=== PATIENT | female | born 1970 | race African-American/Black ===

== ENCOUNTER → 2020-07-05 15:57 | Outpatient (CLI) | payer OTHER, SELFPAY ==
--- NOTE | ~2020-07-05 | MM_ITS ---
EXAMINATION: MM screening [facility]on BI w daria HISTORY: Screening mammogram TECHNIQUE: Craniocaudal and mediolateral oblique 3-D tomosynthesis images were obtained and synthetic 2-D images were generated. CAD analysis was submitted and interpreted. COMPARISON: 04/20/2019, 02/25/2018 bilateral digital screening mammogram examinations BREAST PARENCHYMAL COMPOSITION: There are scattered areas of fibroglandular density. FINDINGS: Stable mild fibroglandular asymmetry. There are bilateral benign-appearing intramammary lym ph nodes again noted. There is no evidence of suspicious mass, calcification, or architectural distor tion to suggest malignancy in either breast. There has been no suspicious interval change. IMPRESSION: 1. No mammographic evidence of malignancy. 2. Recommend routine screening mammography in one year. BI-RADS Category 2: Benign finding(s). Reviewed, dictated and finalized at location A.
== END ==
PROVIDERS: PCP Family Medicine; Visit Provider Obstetrics & Gynecology
DX: Z12.31 Encounter for screening mammogram for malignant neoplasm of breast (principal)
CPT/HCPCS: 77063; 77067

== ENCOUNTER → 2021-07-12 14:40 | Outpatient (CLI) | payer OTHER, SELFPAY ==
--- NOTE | ~2021-07-12 | MM_ITS ---
EXAMINATION: MM screening ivon BI w daria HISTORY: Screening mammogram TECHNIQUE: Craniocaudal and mediolateral oblique 3-D tomosynthesis images were obtained and synthetic 2-D images were generated. CAD analysis was submitted and interpreted. COMPARISON: No prior mammogram is available for comparison at this institution. BREAST PARENCHYMAL COMPOSITION: There are scattered areas of fibroglandular density. FINDINGS: There is no evidence of suspicious mass, calcification, or architectural distortion to sugg est malignancy in either breast. There has been no suspicious interval change. IMPRESSION: 1. No mammographic evidence of malignancy. 2. Recommend routine screening mammography in one year. BI-RADS Category 1: Negative Reviewed, dictated and finalized at location A.
== END ==
PROVIDERS: PCP Family Medicine; Visit Provider Obstetrics & Gynecology
DX: Z12.31 Encounter for screening mammogram for malignant neoplasm of breast (principal)
CPT/HCPCS: 77063; 77067

== ENCOUNTER 2022-01-09 17:43 | Emergency (ER) | payer OTHER, SELFPAY ==
[2022-01-09] VITALS (9 sets, daily range): BP systolic 113–151; BP diastolic 80–97; PULSE 71–101; RESP 12–18; TEMP 36.6; O2SAT 96–100
--- NOTE | ~2022-01-09 | CT_ITS ---
EXAMINATION: CT abdomen pelvis w con INDICATION: Left-sided abdominal pain TECHNIQUE: Computed tomographic images of the abdomen and pelvis were obtained after the administrati on of 100 cc of Omnipaque 350 intravenous contrast. The dose-length product (DLP) was 792.76 mGy-cm. Automated exposure control and iterative reconstruction technique were employed. COMPARISON: 03/22/2018 FINDINGS: The lung bases are clear. The heart size is normal. The liver, spleen, pancreas, gallbladde r, and adrenal glands are normal. The left kidney is unremarkable. There is a 5 mm cyst of the right kidney. No pathologically enlarged abdominal or pelvic lymph nodes are identified. There is no free i ntraperitoneal gas or evidence of bowel obstruction. There is circumferential wall thickening of the colon from the splenic flexure through the sigmoid colon. There is moderate spondylosis at L5-S1. IMPRESSION: 1. Mild colitis from the splenic flexure of the colon through the sigmoid colon. Reviewed, dictated and finalized at location F. IMPRESSION: 1. Mild colitis from the splenic flexure of the colon through the sigmoid colon .
[2022-01-09] MEDS: MORPHINE SULFATE (*CRX) 4 MG/ML INJ IV PUSH (20:30)
[2022-01-09] MEDS: SODIUM CHLORIDE 0.9% IV 1,000 ML 999 ML IV CONT (20:30)
[2022-01-09] MEDS: ONDANSETRON INJ 4 MG/2 ML VIAL IV PUSH (20:30)
[2022-01-09 20:34] LABS: Basophils Absolute Auto 0.1 K/mm3 (0.0-0.1); Basophils Percent Auto 0.5 % (0.2-1.2); Eosinophils Absolute Auto 0.2 K/mm3 (0-0.3); Eosinophils Percent Auto 1.3 % (0-4.4); Hematocrit 43.6 % (37.0-47.0); Hemoglobin 14.5 g/dL (12.0-15.0); Immature Granulocyte Absolute 0.06 K/mm3 (0.00-0.031); Immature Granulocyte Percent A 0.4 % (0-0.5); Lymphocytes Absolute Auto 3.17 K/mm3 (0.9-3.2); Lymphocytes Percent Auto 20.9 % (18.3-44.2); Mean Corpuscular HGB Conc 33.3 g/dl (32-36); Mean Corpuscular Hemoglobin 30.2 pg (26-34); Mean Corpuscular Volume 90.8 fl (80-100); Mean Platelet Volume 10.4 fl (7.4-10.4); Monocytes Absolute Auto 0.7 K/mm3 (0.1-0.6); Monocytes Percent Auto 4.5 % (2.6-8.5); Neutrophils Percent Auto 72.4 % (45.5-73.1); Platelet Count Result 308 k/mm3 (150-375); Red Cell Distribution Width 14.6 % (11.5-14.5); White Blood Count 15.2 K/mm3 (4.5-10.0)
[2022-01-09 20:53] LABS: Partial Thromboplastin Time 25.8 SECONDS (22.3-36.8)
[2022-01-09 20:55] LABS: Alanine Aminotransferase 18 U/L (4-35); Albumin Level 4.1 g/dL (3.5-5.1); Alkaline Phosphatase 95 U/L (38-126); Anion Gap 5 mmol/L (8-16); Aspartate Amino Transferase 30 U/L (14-36); Bilirubin,Total 0.5 mg/dL (0.2-1.3); Blood Urea Nitrogen 12 mg/dL (7-17); Calcium 8.8 mg/dL (8.4-10.2); Carbon Dioxide 29 mmol/L (22-30); Chloride 103 mmol/L (98-107); Estimated CRCL calculation 90 ml/min; Estimated Glomerular Filt Rate > 60; Glucose 83 mg/dL (65-110); Potassium 3.7 mmol/L (3.4-5.0); Sodium 137 mmol/L (137-145)
--- NOTE | 2022-01-09 21:15 | PC.NURSE ---
pt. to CT
--- NOTE | 2022-01-09 21:47 | ED.GIBLEED ---
HPI - GI Bleed General Chief complaint: GI Bleed Stated complaint: rectal bleeding Time Seen by Provider: 01/09/22 20:08 History of Present Illness HPI Narrative: Patient is a 51-year-old female who presents ER with diarrhea and rectal bleeding. Patient reports she has been having diarrhea since the early hours of the morning. It then became bloody later in the day. She has had bad stomach cramping. She has been having chills but no fevers. She initially thought symptoms were related to eating some white [place] hamburgers however patient reports that she had been with her boss last few days and her boss and that individual's family had all had the stomach flu. Patient also has history of diverticulitis. She has some increased pain on left side. Related Data Home Medications Medication Instructions Recorded Confirmed tkvtwkj-[id number]-M complex tablet tablet PO 06/29/21 12/07/21 cholecalciferol (vitamin D3) 125 125 mcg PO DAILY 06/29/21 12/07/21 mcg (5,000 unit) capsule multivitamin 1 tablet PO DAILY 06/29/21 12/07/21 Allergies Allergy/AdvReac Type Severity Reaction Status Date / Time metronidazole [From Flagyl] Allergy Mild Nausea Verified 12/07/21 14:12 Review of Systems Review of Systems: All systems reviewed & are unremarkable except as noted in HPI and below Constitutional: Constitutional: Reports chills, Reports fatigue and Denies fever(s) ENT: Denies nasal congestion and Denies sore throat Cardiovascular: Cardiovascular: Denies chest pain, Denies rapid heart rate and Denies radiating jaw, neck or arm pain Respiratory: Respiratory: Denies cough, Denies dyspnea and Denies wheezing Gastrointestinal: Gastrointestinal: Reports abdominal pain, Reports diarrhea, Denies nausea and Denies vomiting Genitourinary: Genitourinary: Denies nocturia and Denies dysuria [facility] Past Medical History Medical History (Updated 01/09/22 @ 22:03 by Rome Kilgore MD) Depression with anxiety Diverticulitis Surgical History Surgical History History of bilateral tubal ligation History of oophorectomy right? 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 Gender identity (if verbalized by the patient): Female Exam Narrative: GENERAL: Well-appearing, well-nourished, and in no acute distress. HEAD: Normocephalic, atraumatic. ENT: Mucous membranes moist. CHEST: Clear to auscultation. No respiratory distress. HEART: Regular rate and rhythm. Normal peripheral pulses. ABDOMEN: Soft, mild left upper quadrant tenderness without guarding, nondistended, normal active bowel sounds. EXTREMITIES: Normal range of motion. No edema. SKIN: Warm, dry, no rash. NEURO: Alert and oriented x3. PSYCH: Normal mood and affect. Course Course Emergency Course: Patient took a photo of her stool that showed stool mixed with bright red blood. It was sitting on top of toilet paper and did not fill the toilet. No overt hemorrhage. Discharged on Cipro. First dose here. Vital Signs Vital signs: Vital Signs Temperature 97.8 F 01/09/22 18:22 Pulse Rate 101 H 01/09/22 18:22 Respiratory Rate 18 01/09/22 18:22 Blood Pressure 113/97 H 01/09/22 18:22 Pulse Oximetry 99 01/09/22 18:22 Temperature 97.8 F 01/09/22 18:22 Pulse Rate 77 01/09/22 21:00 Respiratory Rate 14 01/09/22 20:16 Blood Pressure 151/90 H 0
[2022-01-09] MEDS: CIPROFLOXACIN 500 MG TAB PO (22:21)
[2022-01-09] MEDS: PROMETHAZINE HCL 25 MG/ML AMPUL 12.5 MG IV PUSH (22:22)
== END 2022-01-09 22:30 | disposition home or self-care (01) ==
PROVIDERS: Emergency Provider Emergency Medicine; PCP Family Medicine
DX: K52.9 Noninfective gastroenteritis and colitis, unspecified (principal)
CPT/HCPCS: 36415; 74177; 80053; 85025; 85610; 85730; 86850; 86900; 86901; 96361; 96374; 96375; 99284; A9270; J2270; J2405; J2550; J7030; Q9967

== ENCOUNTER 2022-07-11 11:35 | Emergency (ER) | payer OTHER, SELFPAY ==
[2022-07-11] VITALS (9 sets, daily range): BP systolic 103–137; BP diastolic 68–93; PULSE 74–98; RESP 11–18; TEMP 36.4; O2SAT 98–100
--- NOTE | ~2022-07-11 | CT_ITS ---
EXAMINATION: CT abdomen pelvis w con DATE: 07/11/2022 16:57 INDICATION: Lower abdominal pain. History of diverticulitis. TECHNIQUE: Computed tomography (CT) of the abdomen and pelvis was performed with 100 CC Omnipaque 350 intravenous contrast. Automated exposure control and iterative reconstruction technique were employe d. Exam dose: 975.07 mGy-cm total exam DLP. COMPARISON: 01/09/2022 CT abdomen pelvis FINDINGS: The lung bases are clear. Normal heart size. No pericardial or pleural effusion. The liver, gallbladder, bile ducts, spleen, pancreas, pancreatic duct and adrenal glands appear wilver l. 8 mm right renal cyst. 3 mm probable left renal lower pole cyst. No renal space-occupying mass lesion is noted otherwise. No urinary tract calculus or hydroureteronephrosis. Normal caliber of the abdominal aorta. No intraperitoneal or retroperitoneal or pelvic mass lesion or adenopathy or ascites. The uterus, adnexa and urinary bladder are unremarkable. There is thickening of the wall of the mid sigmoid colon with pericolic fat stranding in this area, m ost consistent with diverticulitis. Numerous diverticula are noted throughout left and right colon. No evidence of diverticulitis. No bow el obstruction or intraperitoneal free air is detected. There are small fat-containing umbilical hernia. Moderately severe degenerative disc disease and minimal retrolisthesis at L5-S1. Prominent degenerati ve spurring of the lower thoracic spine. No suspicious osteolytic or osteoblastic lesions. IMPRESSION: Acute diverticulitis of mid sigmoid colon Extensive diverticulosis of left and right colon Reviewed, dictated and finalized at Location A. Reviewed, dictated and finalized at location A.
[2022-07-11 12:04] LABS: Basophils Absolute Auto 0.1 K/mm3 (0.0-0.1); Basophils Percent Auto 0.7 % (0.2-1.2); Eosinophils Absolute Auto 0.2 K/mm3 (0-0.3); Eosinophils Percent Auto 1.4 % (0-4.4); Hematocrit 39.8 % (37.0-47.0); Hemoglobin 13.5 g/dL (12.0-15.0); Immature Granulocyte Absolute 0.04 K/mm3 (0.00-0.031); Immature Granulocyte Percent A 0.3 % (0-0.5); Lymphocytes Absolute Auto 2.96 K/mm3 (0.9-3.2); Lymphocytes Percent Auto 21.5 % (18.3-44.2); Mean Corpuscular HGB Conc 33.9 g/dl (32-36); Mean Corpuscular Hemoglobin 29.9 pg (26-34); Mean Corpuscular Volume 88.1 fl (80-100); Mean Platelet Volume 10.2 fl (7.4-10.4); Monocytes Absolute Auto 0.8 K/mm3 (0.1-0.6); Monocytes Percent Auto 5.6 % (2.6-8.5); Neutrophils Absolute Auto 9.7 K/mm3 (1.3-6.7); Neutrophils Percent Auto 70.5 % (45.5-73.1); Platelet Count Result 313 k/mm3 (150-375); Red Blood Count 4.52 M/mm3 (4.2-5.4); Red Cell Distribution Width 14.5 % (11.5-14.5); White Blood Count 13.8 K/mm3 (4.5-10.0)
[2022-07-11 12:14] LABS: Alanine Aminotransferase 17 U/L (6-35); Albumin Level 4.4 g/dL (3.5-5.1); Alkaline Phosphatase 95 U/L (38-126); Anion Gap 13 mmol/L (8-16); Aspartate Amino Transferase 21 U/L (14-36); Bilirubin,Total 0.4 mg/dL (0.2-1.3); Blood Urea Nitrogen 10 mg/dL (7-17); Calcium 8.8 mg/dL (8.4-10.2); Carbon Dioxide 24 mmol/L (22-30); Chloride 103 mmol/L (98-107); Estimated CRCL calculation 78 ml/min; Estimated Glomerular Filt Rate > 60; Glucose 111 mg/dL (65-110); Lipase 41 U/L (23-300); Potassium 3.8 mmol/L (3.4-5.0); Sodium 140 mmol/L (137-145)
[2022-07-11 12:21] LABS: Add Urine Microscopic? YES; Appearance Urine Cloudy (Clear); Bacteria Urine Trace /hpf; Bilirubin Urine Negative (Negative); Blood Urine 2+ (Negative); Color Urine Yellow (Yellow); Glucose Urine UA Negative (Negative); Ketones Urine Trace mg/dL (Negative); Leukocyte Esterase Ur Negative LEU/UL (Negative); Mucus Urine Rare /lpf; Nitrate Urine Negative (Negative); Protein Urine Negative (Negative); Specific Grav Ur 1.025 (1.001-1.035); Squamous Epithelial Cell Urine Many /hpf (Few); Urobilinogen Urine Negative mg/dL (<2.0); WBC Urine 0-3 /hpf
--- NOTE | 2022-07-11 16:37 | ED.ABDPAIN ---
HPI - Abdominal Pain General Chief Complaint: Abdominal Pain Stated Complaint: abd pain Time Seen by Provider: 07/11/22 16:37 Source: patient Mode of arrival: ambulatory Limitations: no limitations History of Present Illness HPI narrative: 52 years old -L[place] female presents with lower abdominal pain radiating to lower back pain bilaterally with chills and nausea. She denies any vomiting, diarrhea, constipation, rectal bleeding. History of diverticulitis and pancreatitis. Symptoms get worse with movement, get better sitting still. Patient does smoke and drink and uses marijuana Related Data Home Medications Medication Instructions Recorded Confirmed multivitamin 1 tablet PO DAILY 06/29/21 07/02/22 Allergies Allergy/AdvReac Type Severity Reaction Status Date / Time metronidazole [From Flagyl] Allergy Mild Nausea Verified 07/02/22 09:15 Review of Systems Review of Systems: All systems reviewed & are unremarkable except as noted in HPI and below PMFSH Past Medical History Medical History Depression with anxiety Diverticulitis Surgical History Surgical History History of bilateral tubal ligation History of oophorectomy right? 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 Gender identity (if verbalized by the patient): Female Exam Narrative: General appearance: Well-developed, well-nourished Skin: Normal color Head: Normocephalic, nontraumatic Eyes: Clear conjunctiva ENT: Oropharynx normal, ears normal, nose normal Neck: Supple, nontender Chest and respiratory: Airway patent, no respiratory distress, no accessory muscle use Heart: Regular rate/rhythm Abdomen: Soft, mild diffuse tenderness, no guarding or rebound no organomegaly, quiet bowel sounds Vascular: Normal peripheral pulses, normal capillary refill. Musculoskeletal: Normal range of motion, nontender back Neurologic: Alert and oriented ?3, DISPENSING AUDIOLOGIST is normal as tested, no gross motor deficit Course Course Emergency Course: Work-up today showed that the patient have acute diverticulitis. Denies any vomiting. Able to keep fluids and medicine down. Patient requested Zofran because she gets nauseated after Flagyl. Patient agreed with the discharge, and does not like to be hospitalized. Vital Signs Vital signs: Vital Signs Temperature 36.4 C L 07/11/22 11:53 Pulse Rate 98 07/11/22 11:53 Respiratory Rate 17 07/11/22 11:53 Blood Pressure 135/87 07/11/22 11:53 Pulse Oximetry 100 07/11/22 11:53 Oxygen Delivery Room Air 07/11/22 11:53 Temperature 36.4 C L 07/11/22 11:53 Pulse Rate 89 07/11/22 16:36 Respiratory Rate 11 L 07/11/22 16:36 Blood Pressure 103/68 07/11/22 16:36 Pulse Oximetry 100 07/11/22 16:36 Oxygen Delivery Room Air 07/11/22 11:53 MDM - Abdominal Pain Lab Data Result diagrams: 07/11/22 11:58 07/11/22 11:58 Labs: Lab Results 07/11/22 07/11/22 07/11/22 Range/Units
--- NOTE | 2022-07-11 16:45 | PC.NURSE ---
Pt to CT.
[2022-07-11] MEDS: ONDANSETRON INJ 4 MG/2 ML VIAL IV PUSH (17:00)
[2022-07-11] MEDS: MORPHINE SULFATE (*CRX) 4 MG/ML INJ IV PUSH (17:00)
[2022-07-11] MEDS: SODIUM CHLORIDE 0.9% IV 1,000 ML 999 ML IV CONT (17:00)
[2022-07-11] MEDS: AMOXICILLIN/CLAVULANATE K 875-125 MG TAB 1 TABLET PO (18:11)
== END 2022-07-11 18:24 | disposition home or self-care (01) ==
PROVIDERS: Emergency Provider Emergency Medicine; PCP Family Medicine
DX: K57.32 Diverticulitis of large intestine without perforation or abscess without bleeding (principal); F17.210 Nicotine dependence, cigarettes, uncomplicated; K57.90 Diverticulosis of intestine, part unspecified, without perforation or abscess without bleeding
CPT/HCPCS: 36415; 74177; 80053; 81001; 83690; 85025; 96361; 96374; 96375; 99284; A9270; J2270; J2405; J7030; Q9967

== ENCOUNTER → 2022-07-16 11:47 | Outpatient (CLI) | payer OTHER, SELFPAY ==
--- NOTE | ~2022-07-16 | MM_ITS ---
EXAMINATION: MM screening [facility] BI w daria HISTORY: Screening TECHNIQUE: Craniocaudal and mediolateral oblique 3-D tomosynthesis images were obtained and synthetic 2-D images were generated. CAD analysis was submitted and interpreted. COMPARISON: Comparison to multiple prior studies sequentially, with oldest reviewed study dated 02/2017. BREAST PARENCHYMAL COMPOSITION: There are scattered areas of fibroglandular density. FINDINGS: There is no evidence of suspicious mass, calcification, or architectural distortion to sugg est malignancy in either breast. There has been no suspicious interval change. IMPRESSION: 1. No mammographic evidence of malignancy. 2. Recommend routine screening mammography in one year. BI-RADS Category 1: Negative Reviewed, dictated and finalized at location A.
== END ==
PROVIDERS: PCP Family Medicine; Visit Provider Obstetrics & Gynecology
DX: Z12.31 Encounter for screening mammogram for malignant neoplasm of breast (principal)
CPT/HCPCS: 77063; 77067

== ENCOUNTER 2022-11-12 15:44 | Inpatient (IN) | payer OTHER, SELFPAY ==
--- NOTE | ~2022-11-12 | CT_ITS ---
EXAMINATION: CT abdomen pelvis w con INDICATION: Generalized abdominal pain TECHNIQUE: Computed tomographic images of the abdomen and pelvis were obtained after the administrati on of 100 cc of Omnipaque 350 intravenous contrast. The dose-length product (DLP) was 1073.47 mGy-cm. Automated exposure control and iterative reconstruction technique were employed. COMPARISON: 11/12/2022 FINDINGS: There are small pleural effusions, right greater than left. There is mild atelectasis of th e visualized lung bases. The heart size is normal. The liver, spleen, pancreas, gallbladder, and adre nal glands are normal. There is a 9 mm cyst of the right kidney. The left kidney is unremarkable. No pathologically enlarged abdominal or pelvic lymph nodes are identified. Again seen is diverticulosis with wall thickening of the sigmoid colon. There is a perisigmoid abscess without significant change accounting for differences in technique. There is, however, interval increase in free intraperitoneal gas and abdominal ascites. A moderate volume of free intraperitoneal gas is now seen surrounding the liver and anteriorly in the upper abdomen. There is wall thickening of the terminal ileum adjacent t o the affected segment of sigmoid colon, likely reactive. IMPRESSION: 1. Sigmoid diverticulitis with perforation and stable perisigmoid abscess but interval increase in vo lume of free intraperitoneal gas, ascites, and inflammatory change of the mesentery of the sigmoid co natalie and terminal ileum. 2. Development of small pleural effusions, right greater than left. Reviewed, dictated and finalized at location F. E SEWER IMPRESSION: 1. Sigmoid diverticulitis with perforation and stable perisigmoid abscess but i nterval increase in volume of free intraperitoneal gas, ascites, and inflammato ry change of the mesentery of the sigmoid colon and terminal ileum. 2. Development of small pleural effusions, right greater than left.
--- NOTE | ~2022-11-12 | CT_ITS ---
EXAMINATION: CT guide absc cath placement DATE: 11/13/2022 14:16 INDICATION: Perisigmoid abscess. TECHNIQUE: The procedure including the risks, benefits, and alternatives was discussed with the patie nt. Risks discussed included bleeding and infection. The patient understood the risks and benefits an d agreed to proceed. The skin overlying the buttocks was prepped and draped in usual sterile fashion. Anesthetic was administered with 1% lidocaine subcutaneously. Moderate sedation was achieved with 1 mg Versed IV and 50 mcg fentanyl IV. An 18 gauge trochar needle was inserted into the pelvic abscess with CT guidance. The needle was exchanged over a wire for 6 Cameroonian, 8 Cameroonian, and 9 Cameroonian dilators and then for an 8.5 Cameroonian pigtail catheter. The catheter was stitched to the skin, and a sterile dr essing was applied. The mA was adjusted according to patient size. Iterative reconstruction technique was employed. The dose-length product was 226.30 mGy-cm. There were no immediate complications. FINDINGS: CT images demonstrate the catheter within the pelvic abscess. 10 mL fluid was aspirated for testing. IMPRESSION: 1. Successful CT-guided transgluteal pelvic abscess drainage. 2. 10 mL james, turbid fluid was sent for aerobic and anaerobic cultures. Reviewed, dictated and finalized at location A. PRINT BLOCKER
--- NOTE | ~2022-11-12 | CT_ITS ---
EXAMINATION: CT abdomen pelvis w con DATE: 11/12/2022 20:58 INDICATION: Diffuse abdominal pain h/o diverticulitis TECHNIQUE: Computed tomography (CT) of the abdomen and pelvis was performed with 100 mL Omnipaque-350 intravenous contrast. Automated exposure control and iterative reconstruction technique were employe d. The dose-length product was 785.59 mGy-cm. COMPARISON: 07/11/2022. FINDINGS: Lower thorax: Left basilar scar/atelectasis Liver: Normal. Biliary/Gallbladder: Gallbladder is normal. No bile duct dilation. Pancreas: Mild atrophy. Spleen: Normal. Adrenals:No mass. Kidneys: Simple right upper pole cyst. No obstructing calculus. No hydronephrosis. No suspicious mass . GI tract: Mild distal esophageal and gastric wall edema as can be seen with esophagitis/gastritis. No small or large bowel dilation. Normal appendix. Segmental wall edema in the sigmoid colon with signi ficant surrounding inflammatory change and fluid. Tiny foci of gas within the adjacent mesenteric fat . Peripheral enhancement surrounding the fluid collection in the left/deep pelvis. Reactive wall selene a present in an adjacent loop of small bowel. Mesentery/Peritoneum: No ascites except as noted above, no mass. Retroperitoneum: No mass. Pelvis: Normal urinary bladder and uterus. Soft Tissues: Soft tissues and body wall unremarkable. Bones: No acute osseous finding. IMPRESSION: Complicated sigmoid diverticulitis, with evidence of microperforation and moderate volume, peripheral ly enhancing adjacent free fluid in the left/deep pelvis, suggesting early abscess formation. Reviewed, dictated and finalized at location K. ET INVESTIGATOR IMPRESSION: Complicated sigmoid diverticulitis, with evidence of microperforation and moder ate volume, peripherally enhancing adjacent free fluid in the left/deep pelvis, suggesting early abscess formation.
--- NOTE | ~2022-11-12 | XR_ITS ---
EXAMINATION: XR chest 1V portable INDICATION: Chest pain TECHNIQUE: Portable AP chest at 1623 hours COMPARISON: 07/29/2016 FINDINGS: The lung volumes are low. The lungs are free of acute opacities. No pleural effusion or pne umothorax. The cardiomediastinal silhouette is normal. IMPRESSION: 1. No acute cardiopulmonary abnormality. Reviewed, dictated and finalized at location F. ASSEMBLY PINNER
[2022-11-12 16:32] VITALS: BP 123/76; PULSE 103; RESP 20; TEMP 37.8; O2SAT 99
[2022-11-12 17:18] LABS: Basophils Absolute Auto 0.1 K/mm3 (0.0-0.1); Basophils Percent Auto 0.4 % (0.2-1.2); Eosinophils Absolute Auto 0.1 K/mm3 (0-0.3); Eosinophils Percent Auto 0.5 % (0-4.4); Hematocrit 41.6 % (37.0-47.0); Hemoglobin 13.5 g/dL (12.0-15.0); Immature Granulocyte Absolute 0.03 K/mm3 (0.00-0.031); Immature Granulocyte Percent A 0.2 % (0-0.5); Lymphocytes Percent Auto 7.1 % (18.3-44.2); Mean Corpuscular HGB Conc 32.5 g/dl (32-36); Mean Corpuscular Hemoglobin 29.5 pg (26-34); Mean Platelet Volume 10.1 fl (7.4-10.4); Monocytes Absolute Auto 0.4 K/mm3 (0.1-0.6); Monocytes Percent Auto 2.6 % (2.6-8.5); Neutrophils Absolute Auto 12.5 K/mm3 (1.3-6.7); Neutrophils Percent Auto 89.2 % (45.5-73.1); Platelet Count Result 350 k/mm3 (150-375); Red Blood Count 4.57 M/mm3 (4.2-5.4); Red Cell Distribution Width 14.8 % (11.5-14.5)
[2022-11-12 17:24] LABS: Appearance Urine Clear (Clear); Bacteria Urine None Seen /hpf; Bilirubin Urine 1+ (Negative); Blood Urine 2+ (Negative); Color Urine Dark Yellow (Yellow); Glucose Urine UA Negative (Negative); Ketones Urine 2+ mg/dL (Negative); Leukocyte Esterase Ur Trace LEU/UL (Negative); Nitrate Urine Negative (Negative); Non Pathogenic Casts 0-2; Protein Urine 1+ mg/dL (Negative); RBC Urine 21-50 /hpf (0-2); Specific Grav Ur 1.034 (1.001-1.035); Squamous Epithelial Cell Urine Occasional /hpf (Few); WBC Urine 0-5 /hpf; pH Urine 5.5 (5.0-9.0)
[2022-11-12 17:28] LABS: Alanine Aminotransferase 22 U/L (6-35); Albumin Level 4.2 g/dL (3.5-5.1); Alkaline Phosphatase 114 U/L (38-126); Anion Gap 8 mmol/L (8-16); Aspartate Amino Transferase 25 U/L (14-36); Bilirubin,Total 0.8 mg/dL (0.2-1.3); Blood Urea Nitrogen 12 mg/dL (7-17); Carbon Dioxide 28 mmol/L (22-30); Chloride 106 mmol/L (98-107); Estimated CRCL calculation 89 ml/min; Estimated Glomerular Filt Rate > 60; Glucose 109 mg/dL (65-110); Lipase 22 U/L (23-300); Potassium 3.7 mmol/L (3.4-5.0); Sodium 142 mmol/L (137-145)
[2022-11-12 17:30] LABS: Add Urine Microscopic? YES
--- NOTE | 2022-11-12 20:32 | ED.ABDPAIN ---
HPI - Abdominal Pain General Chief Complaint: Abdominal Pain Stated Complaint: abd cramps Time Seen by Provider: 11/12/22 20:08 Source: patient, RN notes reviewed and old records reviewed Mode of arrival: ambulatory Limitations: no limitations History of Present Illness HPI narrative: This is a 52 year old female with history of pancreatitis and diverticulitis who presents for evaluation of abdominal cramping. She developed intermittent lower abdominal cramping on Friday. This cramping had been localized to left lower abdomen but today she has diffuse abdominal pain. She states pain is radiating to her back and down her legs. She states initially she was only have small bowel movements but for the past day she had been unable to have bowel movement. She also has low grade fever today and nausea. She noticed pressure when she went to urinate today. She has not taken any medication for her pain today. She was prescribed amoxicillin by her PCP today for possible diverticulitis. She reports pain is 06/24 Related Data Allergies Allergy/AdvReac Type Severity Reaction Status Date / Time metronidazole [From Flagyl] Allergy Mild Nausea Verified 11/12/22 16:37 Review of Systems Constitutional: Constitutional: Reports fatigue, Reports fever(s) and Denies weakness Cardiovascular: Cardiovascular: Denies syncope, Denies rapid heart rate, Denies irregular heart rhythm, Denies leg edema and Denies dyspnea Respiratory: Respiratory: Denies chest congestion, Denies hemoptysis, Denies excessive phlegm production and Denies dyspnea Gastrointestinal: Gastrointestinal: Reports abdominal pain, Denies hematochezia, Reports constipation, Denies diarrhea, Reports nausea and Denies vomiting Genitourinary: Genitourinary: Denies hematuria and Denies dysuria Musculoskeletal: Musculoskeletal: Reports back pain, Denies joint swelling, Denies loss of height and Denies muscle weakness Neurologic: Denies syncope, Denies focal weakness and Denies weakness PMFSH Past Medical History Medical History Depression with anxiety Diverticulitis Surgical History Surgical History History of bilateral tubal ligation History of oophorectomy right? Family History Family History Grandparent Diabetes mellitus, Onset Age: 60 Cerebrovascular accident Father Mother Dementia Social History Social History Smoking status: Current every day smoker Tobacco type: cigarettes Second hand tobacco smoke exposure: No Alcohol intake: current Drinks per week: 3 Substance use: current Substance use type: marijuana Lack of Transportation: No Lack of Food: Never True Current Housing: I Have Housing Concerned About Future Housing: No Difficulty Paying Gas/Electric Bills: No Difficulty Paying for Meds: No Currently Unemployed: No Education: Associate Degree Difficulty w/ Childcare or Family Care: No Living arrangements: alone Occupation/Education: occupation 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 Gender identity (if verbalized by the patient): Female Spiritual care concerns: No Exam Const: General: alert Nutritional Appearance: well nourished Orientation/consciousness: patient oriented x3 Other: appears to be in pain HENMT: Head: normal to inspection Mouth: Yes Normal oral and palatal mucosa present Eyes: EOM: EOMs intact bilaterally Chest: Chest palpation & inspection: normal inspection of the chest Resp: Effort & Inspection: normal respiratory effort Auscultation: clear to auscultation bilaterally Cardio: Rate: tachycardic Rhythm: regular rhythm Heart sounds: no murmurs GI: GI
[2022-11-12] MEDS: ONDANSETRON INJ 4 MG/2 ML VIAL IV PUSH (20:40)
[2022-11-12] MEDS: HYDROmorphone HCL INJ (*CRX) 1 MG/ML SYR IV PUSH (20:41)
[2022-11-12] MEDS: SODIUM CHLORIDE 0.9% IV 1,000 ML 999 ML IV CONT ×2 (20:42→22:54)
[2022-11-12 21:23] LABS: Influenza A QL RT-PCR Negative (Negative); Influenza B QL RT-PCR Negative (Negative); SARS-CoV-2 RNA PCR Negative
[2022-11-12 23:20] VITALS: BP 115/71; PULSE 97; RESP 18; TEMP 36.5; O2SAT 98
--- NOTE | 2022-11-12 23:33 | ADMGEN ---
This patient, Billie Riddle, was admitted to [facility] Surg Room 300-01. Patient/family oriented to hospital policies and general routines including ID bracelet, bed and alarms, visiting hours, pain management, procedures, bathroom and other care routines, personal items, smoking policy, room service/diet, and visiting hours. Information on how to activate the Rapid Response Team has been discussed. Patient/Family are encouraged to report perceived risks to care and to ask questions if they do not understand what they are told or what they should do.
[2022-11-13] VITALS (12 sets, daily range): BP systolic 102–140; BP diastolic 61–92; PULSE 69–98; RESP 12–18; TEMP 36.4–36.6; O2SAT 93–100
[2022-11-13] MEDS: ONDANSETRON INJ 4 MG/2 ML VIAL IV PUSH ×4 (00:05→16:39)
[2022-11-13] MEDS: HYDROmorphone HCL INJ (*CRX) 1 MG/ML SYR IV PUSH ×7 (00:05→23:39)
[2022-11-13] MEDS: SODIUM CHLORIDE 0.9% IV 1,000 ML 125 ML IV CONT ×3 (00:06→20:14)
--- NOTE | 2022-11-13 00:30 | PM.IMHP ---
H&P: HPI History of Present Illness Date/Time: 11/13/22 00:30 Chief Complaint: Left lower quadrant pain Narrative: This is a 52-year-old female with past medical history significant for diverticulosis, diverticulitis, smokes 1 pack of cigarettes daily. Patient presents to the emergency room due to 3 days or so of left lower quadrant pain with tenesmus, poor appetite, nausea, denies fevers, rigors or chills vomiting patient had been prescribed amoxicillin but patient got gradually worse and presented to the emergency room. Preliminary workup was significant for CT of abdomen and pelvis has been reported as: FINDINGS: Lower thorax: Left basilar scar/atelectasis Liver: Normal.? Biliary/Gallbladder: Gallbladder is normal. No bile duct dilation. Pancreas: Mild atrophy. Spleen: Normal. Adrenals:No mass. Kidneys: Simple right upper pole cyst. No obstructing calculus. No hydronephrosis. No suspicious mass. GI tract: Mild distal esophageal and gastric wall edema as can be seen with esophagitis/gastritis. No small or large bowel dilation. Normal appendix. Segmental wall edema in the sigmoid colon with significant surrounding inflammatory change and fluid. Tiny foci of gas within the adjacent mesenteric fat. Peripheral enhancement surrounding the fluid collection in the left/deep pelvis. Reactive wall edema present in an adjacent loop of small bowel. Mesentery/Peritoneum: No ascites except as noted above, no mass. Retroperitoneum: No mass. Pelvis: Normal urinary bladder and uterus. Soft Tissues: Soft tissues and body wall unremarkable. Bones:? No acute osseous finding. IMPRESSION: Complicated sigmoid diverticulitis, with evidence of microperforation and moderate volume, peripherally enhancing adjacent free fluid in the left/deep pelvis, suggesting early abscess formation. Review of Systems Review of Systems: Left lower quadrant pain, tenesmus, constipation, nausea, vomiting, poor appetite Constitutional: Constitutional: Denies chills, Denies fever(s), Denies malaise, Denies night sweats, Reports poor appetite and Denies weakness Eyes: Eyes: Denies change in vision ENT: Denies dysphagia, Denies vertigo, Denies dizziness and Denies odynophagia Cardiovascular: Cardiovascular: Denies chest pain, Denies leg edema and Denies palpitations Respiratory: Respiratory: Denies chest congestion, Denies cough and Denies pain on inspiration Gastrointestinal: Gastrointestinal: Reports abdominal pain (Left lower quadrant), Reports constipation, Reports GI cramping, Denies dyspepsia, Denies heartburn, Reports diarrhea, Reports loose stools, Reports nausea and Reports vomiting Genitourinary: Genitourinary: Denies dysuria Musculoskeletal: Musculoskeletal: Denies myalgias Integumentary/Breasts: Skin/Breast: Denies rash Neurologic: Denies focal weakness and Denies Sensory deficit (Neuro) Psychiatric: Psychiatric: Reports no additional psychiatric complaints and Reports as per HPI Endocrine: Endocrine: Denies cold intolerance, Denies flushing, Denies heat intolerance, Denies polyphagia, Denies polydipsia and Denies palpitations Hematologic/Lymphatic: Hematologic/Lymphatic: Reports no additional hematologic/lymphatic complaints and Reports as per HPI Allergic/Immunologic: Allergic/Immunologic: Reports no additional allergic/immunologic complaints and Reports as per HPI PMFSH Past Medical History Medical History Depression with anxiety Diverticulitis Surgical History Surgical History History of bilateral tubal ligation History of oophorectomy right? Family History Family History Grandparent Diabetes mellitus, Onset Age: 60 Cerebrovascular accident Father Mother Dementia Social History Social History (Reviewed
[2022-11-13 06:15] LABS: Alanine Aminotransferase 18 U/L (6-35); Albumin Level 3.3 g/dL (3.5-5.1); Alkaline Phosphatase 87 U/L (38-126); Anion Gap 5 mmol/L (8-16); Aspartate Amino Transferase 20 U/L (14-36); Bilirubin,Total 1.4 mg/dL (0.2-1.3); Blood Urea Nitrogen 8 mg/dL (7-17); Calcium 7.7 mg/dL (8.4-10.2); Carbon Dioxide 26 mmol/L (22-30); Chloride 110 mmol/L (98-107); Estimated CRCL calculation 102 ml/min; Estimated Glomerular Filt Rate > 60; Glucose 97 mg/dL (65-110); Potassium 3.2 mmol/L (3.4-5.0); Sodium 141 mmol/L (137-145)
[2022-11-13 06:32] LABS: Basophils Percent Auto 0.3 % (0.2-1.2); Eosinophils Absolute Auto 0.1 K/mm3 (0-0.3); Eosinophils Percent Auto 0.8 % (0-4.4); Hemoglobin 11.3 g/dL (12.0-15.0); Immature Granulocyte Absolute 0.06 K/mm3 (0.00-0.031); Immature Granulocyte Percent A 0.4 % (0-0.5); Lymphocytes Absolute Auto 1.79 K/mm3 (0.9-3.2); Lymphocytes Percent Auto 11.7 % (18.3-44.2); Mean Corpuscular HGB Conc 32.3 g/dl (32-36); Mean Corpuscular Hemoglobin 28.9 pg (26-34); Mean Corpuscular Volume 89.5 fl (80-100); Mean Platelet Volume 10.8 fl (7.4-10.4); Monocytes Absolute Auto 0.6 K/mm3 (0.1-0.6); Monocytes Percent Auto 3.7 % (2.6-8.5); Neutrophils Absolute Auto 12.7 K/mm3 (1.3-6.7); Neutrophils Percent Auto 83.1 % (45.5-73.1); Platelet Count Result 304 k/mm3 (150-375); Red Blood Count 3.91 M/mm3 (4.2-5.4); Red Cell Distribution Width 14.8 % (11.5-14.5); White Blood Count 15.3 K/mm3 (4.5-10.0)
[2022-11-13] MEDS: KCL 20 MEQ/SW 100 ML 100 ML 50 MEQ IVPB (09:42)
[2022-11-13 10:21] LABS: INR 1.4; Prothrombin Time 16.5 Seconds (11.1-14.7)
[2022-11-13 10:22] LABS: Partial Thromboplastin Time 31.4 SECONDS (22.3-36.8)
--- NOTE | 2022-11-13 11:46 | PM.CNGS ---
Assessment and Plan Assessment and plan (1) Diverticulitis of large intestine with perforation and abscess: Qualifiers: Diverticulitis bleeding: without bleeding Qualified Code(s): K57.20 - Diverticulitis of large intestine with perforation and abscess without bleeding Code(s): K57.20 - Diverticulitis of large intestine with perforation and abscess without bleeding Status: Acute Assessment and Plan: CT scan reviewed with the Radiologist and discussed with the patient in detail. She has evidence of complicated sigmoid diverticulitis with microperforation and an adjacent abscess measuring about 8 x 3 cm. This appears amenable to percutaneous drainage. We would recommend CT-guided percutaneous drainage of the abscess in Radiology, which I have ordered to hopefully be done today. Also continue broad-spectrum IV antibiotics, bowel rest, analgesics as needed. She has been started on IV Zosyn, which is appropriate. I discussed with the patient that if she does not improve with antibiotics and drainage or if she shows worsening signs of infection, then she could require surgery in the acute phase, but we try to avoid this as it comes with a higher risk of a colostomy. Will continue to follow along with serial abdominal exams and labs. (2) BMI 35.0-35.9,adult: Code(s): Z68.35 - Body mass index [BMI] 35.0-35.9, adult Status: Acute (3) Tobacco abuse: Code(s): Z72.0 - Tobacco use Status: Acute (4) Depression with anxiety: Code(s): F41.8 - Other specified anxiety disorders Status: Acute Plan I have discussed the patient's case and plan of care with Dr. Gamez. Thank you for allowing us to see the patient in consultation and we will continue to follow along with you. History of Present Illness Consult details Consult date: 11/13/22 Reason for consult: other (Sigmoid diverticulitis with perforation and abscess) Requesting physician: Velia Garcia MD Narrative: This is a 52-year-old woman who presented to the emergency department with complaints of a 12-day history of abdominal pain. She was recently on vacation in [place] from October 25-. She had been drinking more alcohol than normal and eating poorly. She developed left lower quadrant abdominal pain and diarrhea on November 01 while in [place]. She attributed this to her eating and drinking while on vacation. This was initially a mild cramping abdominal pain. The pain and diarrhea seemed to get better over the next few days and then worsened again last weekend. She had one day of loose stools, then started to feel constipated over the next few days. She had associated nausea and chills, but no vomiting. Her abdominal pain would be relieved after passing flatus, but was only having a few small BMs. She eventually called her PCP yesterday due to the persistent pain. They started her on Augmentin. She took 1 dose at lunch, and then her abdominal pain became more severe in the afternoon, therefore she came into the ER for further evaluation. CT scan of the abdomen and pelvis showed sigmoid diverticulitis with microperforation and a peripherally enhancing adjacent area of free fluid in the left deep pelvis suggesting early abscess formation. Labs [place] [id number]. She was admitted to the hospitalist service. Our service has been consulted for evaluation of perforated diverticulitis with abscess. She is seen on the medical floor. She reports over the last few days, her abdominal pain has become more generalized and more intense. She is passing flatus today, but her last bowel movement was yesterday. She reports having a history of diverticulitis about 3-4 times in the past 15 years. It has been multiple years since her last episode. All previous episodes have been treated with outpatient oral antibiotics. She reports having a colonoscopy many years ago with reportedly no significant findings
--- NOTE | 2022-11-13 13:29 | WPDMODSED ---
Moderate Sedation Note-Pt Data Patient Data Diagnosis: Pelvic abscess. Present Complaint: Pelvis abscess. Procedure to be performed/Plan: CT-guided pelvic abscess drainage. Allergies Allergy/AdvReac Type Severity Reaction Status Date / Time metronidazole [From Flagyl] AdvReac Mild Nausea Verified 11/13/22 09:50 Home Medications Medication Instructions Recorded Confirmed Type hydrocodone 7.5 mg-acetaminophen 1 tablet PO Q6H PRN pain #60 tabs 09/20/22 11/13/22 Rx 325 mg tablet amoxicillin 875 mg-potassium 1 tablet PO BID #14 tabs 11/12/22 11/13/22 Rx clavulanate 125 mg tablet Current Medications: Active Medications Hydromorphone HCl (Hydromorphone Hcl Inj (*Crx) 1 Mg/Ml Syr) 1 mg IV PUSH Q2H PRN PRN Reason: Pain Rated 7-10 Last Admin: 11/13/22 11:52 Dose: 1 mg Hydromorphone HCl (Hydromorphone Hcl Inj (*Crx) 2 Mg/Ml Vial) 0.5 mg IV PUSH Q2H PRN PRN Reason: Pain Rated 4-6 Piperacillin/Tazobactam/Dextrose (Zosyn 3.375 Gm/D5w 50ml Pm) 3.375 gm in 50 mls @ 100 mls/hr IVPB Q6H OLIVIA Last Admin: 11/13/22 11:51 Dose: 100 mls/hr Acetaminophen (Ofirmev 1,000 Mg Ivpb) 1,000 mg in 100 mls @ 400 mls/hr IVPB Q6H PRN PRN Reason: Mild Pain (1-3) or Fever Stop: 11/13/22 21:55 Last Admin: 11/13/22 06:47 Dose: 400 mls/hr Sodium Chloride (Normal Saline Iv) 1,000 mls @ 125 mls/hr IV CONT .Q8H OLIVIA Last Admin: 11/13/22 08:16 Dose: 125 mls/hr Lorazepam (Lorazepam Inj (*Crx) 2 Mg/Ml Vial) 0.5 mg IV PUSH Q6H PRN PRN Reason: Anxiety Ondansetron HCl (Ondansetron Inj 4 Mg/2 Ml Vial) 4 mg IV PUSH Q4H PRN PRN Reason: Nausea Last Admin: 11/13/22 11:51 Dose: 4 mg Promethazine HCl (Promethazine Hcl 25 Mg/Ml Ampul) 12.5 mg IV PUSH Q4H PRN PRN Reason: Nausea And Vomiting Sedation/Anesthesia: No previous sedation/anesthesia problems (including family history). [facility] Past Medical History Medical History Depression with anxiety Diverticulitis History of colitis 2018 Surgical History Surgical History History of bilateral tubal ligation History of colonoscopy Reportedly has had a colonoscopy in the past many years ago and is due, but cannot recall what year and denies any significant findings History of laparoscopy 2014 - Diagnostic laparoscopy, diagnostic hysteroscopy for dysfunctional uterine bleeding History of oophorectomy Family History Family History Grandparent Diabetes mellitus, Onset Age: 60 Cerebrovascular accident Father Mother Dementia Social History Social History Smoking status: Current every day smoker Tobacco type: cigarettes Second hand tobacco smoke exposure: No Alcohol intake: current Drinks per week: 3 Substance use: current Substance use type: marijuana Lack of Transportation: No Lack of Food: Never True Current Housing: I Have Housing Concerned About Future Housing: No Difficulty Paying Gas/Electric Bills: No Difficulty Paying for Meds: No Currently Unemployed: No Education: Associate Degree Difficulty w/ Childcare or Family Care: No Living arrangements: alone Occupation/Education: occupation 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 Gender identity (if verbalized by the patient): Female Spiritual care concerns: No Mod Sed Physical Exam Physical Exam Pre Procedural Exam: Normal: Throat, Lungs, Heart Rate and Heart Rhythm and Variation: Abdomen (Tenderness to deep palpation lower abdomen.) Hours since solid foods: 12 Hours since liquid intake: 12 Mallampati Classification: class II Internal Medicine - PN: Obj Da Vital Signs Vital Signs: Vital Signs - 24 hr 11/12/22 16:32 11/12/22 23:
--- NOTE | 2022-11-13 14:23 | SUR.PHASEII ---
Pt stable without complaint after procedure. Drain in place. IV rt forearm saline locked. Transfer to floor via stretcher by assistant professor of radiology. Report called to floor nurse by traffic technician.
--- NOTE | 2022-11-13 15:13 | PM.IMPN ---
Progress Note: A&P Assessment and Plan (1) Perforated diverticulum of intestine: Code(s): K57.80 - Diverticulitis of intestine, part unspecified, with perforation and abscess without bleeding Status: Acute Assessment and Plan: patient presented with abdominal pain. CT on admission showed complicated sigmoid diverticulitis with microperforation and early abscess formation underwent CT-guided transgluteal abscess drainage today abscess cultures are pending continue IV Zosyn appreciate general surgery recommendations currently NPO. Continue IV fluids while NPO and advance diet as tolerated per General surgery recommendations analgesics and antiemetics available as needed WBC elevated at 15.3. Continue to trend Monitor CRP (2) Hypokalemia: Code(s): E87.6 - Hypokalemia Status: Acute Assessment and Plan: Potassium is 3.2 today. Likely secondary to NPO diet supplement potassium and continue to monitor (3) Tobacco abuse: Code(s): Z72.0 - Tobacco use Status: Acute Assessment and Plan: Nicotine patch as needed during admission Subjective Date/time seen: 11/13/22 11:40 Interval history: date of service: 11/13/2022 Billie Riddle is a 52-year-old female with a history of depression, anxiety, colitis, diverticulitis who is seen in follow-up for diverticulitis with perforation and abscess. She is feeling poorly today. She endorses 10/10 lower abdominal pain. she complains of nausea but no episodes of emesis. Her mouth is dry since she has been NPO today. Reports having a bowel movement yesterday. She endorses chills and sweats but no fever. Denies urinary symptoms. She feels anxious about being hospitalized. Review of Systems Review of Systems: All systems reviewed & are unremarkable except as noted in HPI and below Exam Narrative: General: Well-nourished, well-appearing 52-year-old female, sitting up in bed, comfortable, NARD Neuro: awake, alert and oriented x4, speech clear, no focal neuro deficits noted HEENMT: normocephalic, atraumatic, EOMI, sclerae anicteric, moist oral mucosa Respiratory: clear to auscultation bilaterally, nonlabored breathing Cardio: regular rate, regular rhythm with S1-S2 Abdomen: nondistended, normoactive bowel sounds, soft, diffusely tender to palpation Extremities: no edema, erythema, or tenderness to palpation, DP pulses 2+ bilaterally Skin: no rashes or lesions, warm and dry Psych: appropriate mood and affect, tearful, judgment and insight intact Objective Data Vital Signs Vital Signs: Vital Signs - 24 hr 11/12/22 16:32 11/12/22 23:20 11/13/22 06:00 Temperature 100.1 F H 97.7 F 97.9 F Pulse Rate 103 H 97 94 Respiratory Rate 20 18 18 Blood Pressure 123/76 115/71 115/70 Pulse Oximetry 99 98 98 Oxygen Delivery Room Air 11/13/22 08:14 11/13/22 14:00 Temperature 97.5 F L Pulse Rate 69 80 Respiratory Rate 18 Blood Pressure 110/69 Pulse Oximetry 93 97 Oxygen Delivery Room Air Intake/Output Intake/Output: Intake & Output 11/10/22 11/11/22 11/12/22 11/13/22 23:59 23:59 23:59 23:59 Intake Total 1100 1100 Output Total 500 Balance 1100 600 Meds/Results Medications: Active Medications Generic Name Dose Route Start Last Admin Trade Name Freq PRN Reason Stop Dose Admin Hydromorphone HCl 1 mg 11/13/22 09:48 11/13/22 11:52 Hydromorphone Hcl Inj (*Crx) 1 Mg/Ml Syr IV PUSH 1 mg Q2H PRN Administration Pain Rated 7-10 Hydromorphone HCl 0.5 mg 11/13/22 09:47 Hydromorphone Hcl Inj (*Crx) 2 Mg/Ml Vial IV PUSH Q2H PRN Pain Rated 4-6 Piperacillin/Tazobactam/Dextrose 3.375 gm in 50 mls @ 100 mls/hr 11/13/22 06:00 11/13/22 14:57 Zosyn 3.375 Gm/D5w 50ml Pm IVPB Infused Q6H OLIVIA Infusion Acetaminophen 1,000 mg in 100 mls @ 400 mls/hr 11/12/22 21:56 11/13/22 06:47 Ofirmev 1,000 Mg Ivpb IVPB 11/13/22 21:55 400 mls/hr
[2022-11-14] MEDS: SODIUM CHLORIDE 0.9% IV 1,000 ML 125 ML IV CONT (05:21)
[2022-11-14 06:00] VITALS: BP 110/63; PULSE 96; RESP 17; TEMP 36.7; O2SAT 91
[2022-11-14] MEDS: HYDROmorphone HCL INJ (*CRX) 1 MG/ML SYR IV PUSH ×5 (06:05→19:03)
[2022-11-14] MEDS: ONDANSETRON INJ 4 MG/2 ML VIAL IV PUSH (06:05)
[2022-11-14 07:13] LABS: Hematocrit 35.1 % (37.0-47.0); Hemoglobin 11.2 g/dL (12.0-15.0); Mean Corpuscular HGB Conc 31.9 g/dl (32-36); Mean Corpuscular Hemoglobin 28.8 pg (26-34); Mean Corpuscular Volume 90.2 fl (80-100); Platelet Count Result 305 k/mm3 (150-375); Red Blood Count 3.89 M/mm3 (4.2-5.4); White Blood Count 15.5 K/mm3 (4.5-10.0)
[2022-11-14 07:22] LABS: Anion Gap 8 mmol/L (8-16); Blood Urea Nitrogen 6 mg/dL (7-17); Calcium 8.1 mg/dL (8.4-10.2); Carbon Dioxide 21 mmol/L (22-30); Chloride 108 mmol/L (98-107); Estimated CRCL calculation 89 ml/min; Estimated Glomerular Filt Rate > 60; Glucose 73 mg/dL (65-110); Potassium 3.2 mmol/L (3.4-5.0); Sodium 137 mmol/L (137-145)
[2022-11-14] MEDS: PROMETHAZINE HCL 25 MG/ML AMPUL 12.5 MG IV PUSH (09:16)
[2022-11-14] MEDS: ENOXAPARIN 40 MG/0.4 ML SYRINGE SUB-Q (09:25)
--- NOTE | 2022-11-14 10:35 | PM.PNGS ---
Progress Note: A&P Assessment and Plan (1) Diverticulitis of large intestine with perforation and abscess: Qualifiers: Diverticulitis bleeding: without bleeding Qualified Code(s): K57.20 - Diverticulitis of large intestine with perforation and abscess without bleeding Code(s): K57.20 - Diverticulitis of large intestine with perforation and abscess without bleeding Status: Acute Assessment and Plan: S/p perc drain in IR yesterday, cultures pending. WBC still 15k today, but abdominal pain and tenderness improved. Repeat labs tomorrow. Will try sips of clear liquids today. Continue IV Zosyn Encouraged to get up to chair and ambulate (2) BMI 35.0-35.9,adult: Code(s): Z68.35 - Body mass index [BMI] 35.0-35.9, adult Status: Acute (3) Tobacco abuse: Code(s): Z72.0 - Tobacco use Status: Acute Plan I have discussed the patient's case and plan of care with Dr. Gamez. Subjective Subjective Date/Time Seen: 11/14/22 10:35 Patient reports: pain is less, voiding w/o difficulty, flatus, no bowel movement and afebrile Interval history: Patient feeling well today. Her abdominal pain has improved and is now primarily only across her lower abdomen. She also has some L gluteal soreness at perc drain site, but not bad. She is still having some nausea but insists that it is due to not having anything to eat/drink. Nausea improved after having the Phenergan this morning. No other complaints at this time. Review of Systems Review of Systems: ROS unchanged Exam Const: General: comfortable and no acute distress Orientation/consciousness: patient oriented x3 GI: Inspection: other (mildly distended) GI Palp: Yes Soft to palpation, Yes Tenderness to palpation present (GI) (RLQ, LLQ, suprapubic), No Guarding due to palpation present (GI) and No Rebound tenderness present Auscultation: normal bowel sounds Other: L gluteal perc drain with cloudy yellow drainage Extrem: General: normal to inspection and no edema Psych: Insight: Good insight present (Psych) Objective Data Vital Signs Vital Signs: Vital Signs - 24 hr 11/13/22 14:00 11/13/22 13:42 11/13/22 13:53 Temperature 97.5 F L Pulse Rate 80 94 81 Respiratory Rate 18 14 16 Blood Pressure 110/69 131/92 H 140/77 Pulse Oximetry 97 97 100 Oxygen Delivery Room Air Nasal Cannula Oxygen Flow Rate 3 11/13/22 14:13 11/13/22 14:03 11/13/22 13:58 Temperature Pulse Rate 84 84 84 Respiratory Rate 14 12 16 Blood Pressure 109/66 102/72 109/71 Pulse Oximetry 97 100 100 Oxygen Delivery Room Air Nasal Cannula Nasal Cannula Oxygen Flow Rate 3 3 11/13/22 14:08 11/13/22 14:23 11/13/22 22:00 Temperature 97.6 F Pulse Rate 82 78 98 Respiratory Rate 15 16 17 Blood Pressure 110/78 103/75 106/61 Pulse Oximetry 100 95 93 Oxygen Delivery Nasal Cannula Room Air Oxygen Flow Rate 3 11/13/22 20:00 11/14/22 06:00 Temperature 98.1 F Pulse Rate 98 96 Respiratory Rate 17 17 Blood Pressure 110/63 Pulse Oximetry 93 91 Oxygen Delivery Room Air Oxygen Flow Rate Intake/Output Intake/Output: Intake & Output 11/11/22 11/12/22 11/13/22 11/14/22 23:59 23:59 23:59 23:59 Intake Total 1100 2250 1050 Output Total 1150 550 Balance 1100 1100 500 Meds/Results Medications: Active Medications Generic Name Dose Route Start Last Admin Trade Name Freq PRN Reason Stop Dose Admin Enoxaparin Sodium 40 mg 11/14/22 09:00 11/14/22 09:25 Enoxaparin 40 Mg/0.4 Ml Syringe SUB-Q 40 mg DAILY OLIVIA Administration Hydromorphone HCl 1 mg 11/13/22 09:48 11/14/22 09:16 Hydromorphone Hcl Inj (*Crx) 1 Mg/Ml Syr IV PUSH 1 mg Q2H PRN Administration Pain Rated 7-10 Hydromorphone HCl 0.5 mg 11/13/22 09:47 Hydromorphone Hcl Inj (*Crx) 2 Mg/Ml Vial IV PUSH Q2H PRN Pain Rated 4-6 Piperacillin/Tazobactam/Dextrose 3.375 gm in 50 mls @ 100 mls/hr 11/13/22 06:00 11/14/22 05:21 Zosvetlana
--- NOTE | 2022-11-14 11:00 | PM.IMPN ---
Progress Note: A&P Assessment and Plan (1) Perforated diverticulum of intestine: Code(s): K57.80 - Diverticulitis of intestine, part unspecified, with perforation and abscess without bleeding Status: Acute Assessment and Plan: Patient presented with abdominal pain. CT on admission showed complicated sigmoid diverticulitis with microperforation and early abscess formation underwent CT-guided transgluteal abscess drainage today drain present Trend output abscess cultures are pending continue IV Zosyn appreciate general surgery recommendations currently on clear liquids Continue IV fluids for right now analgesics and antiemetics available as needed WBC elevated at 15.5 and are trending up Trend labs (2) Hypokalemia: Code(s): E87.6 - Hypokalemia Status: Acute Assessment and Plan: Potassium is 3.2 again today Likely secondary to NPO diet Supplement potassium with 40mcg IV once Continue to trend labs Supplement as indicated (3) Tobacco abuse: Code(s): Z72.0 - Tobacco use Status: Acute Assessment and Plan: Nicotine patch as needed during admission Smoking cessation education given Time Spent With Patient Time: 52 minutes Time with patient: Greater than 35 minutes Subjective Date/time seen: 11/14/22 1100 Interval history: 11/14/22 1100 patient is lying in bed. Patient states that she is having pain however it is better controlled with the medication every 4 hours. She also stated that she is nauseous however she would like to try something to eat at least clear liquids As she stated that she is thirsty. She denies any chest pain, shortness a breath, vomiting. She does states she is extremely weak and nauseated all the time. She also stated that she had the sweats overnight. White count is still elevated at 15.5. 11/13/2022 1140 Billie Riddle is a 52-year-old female with a history of depression, anxiety, colitis, diverticulitis who is seen in follow-up for diverticulitis with perforation and abscess.? She is feeling poorly today.? She endorses 10/10 lower abdominal pain.? she complains of nausea but no episodes of emesis.? Her mouth is dry since she has been NPO today.? Reports having a bowel movement yesterday.? She endorses chills and sweats but no fever.? Denies urinary symptoms.? She feels anxious about being hospitalized 11/13/22? 00:30 This is a 52-year-old female with past medical history significant for diverticulosis, diverticulitis, smokes 1 pack of cigarettes daily.? Patient presents to the emergency room due to 3 days or so of left lower quadrant pain with tenesmus, poor appetite, nausea, denies fevers, rigors or chills vomiting patient had been prescribed amoxicillin but patient got gradually worse and presented to the emergency room. Review of Systems Review of Systems: All systems reviewed & are unremarkable except as noted in HPI and below Exam Narrative: General: well-nourished, well-appearing 52-year-old female, sitting up in bed, comfortable, NARD Neuro: awake, alert and oriented x4, speech clear, no focal neuro deficits noted HEENMT: normocephalic, atraumatic, EOMI, sclerae anicteric, moist oral mucosa Respiratory: Clear to auscultation bilaterally without crackles, rhonchi or wheezes, nonlabored breathing Cardio: regular rate, regular rhythm with S1-S2 Abdomen: nondistended, normoactive bowel sounds, soft, nontender to palpation Drain on the left abdomen draining a yellow clear fluid Extremities: no edema, erythema, or tenderness to palpation, DP pulses 2+ bilaterally Skin: no rashes or lesions, warm and dry Psych: appropriate mood and affect, judgment and insight intact Objective Data Vital Signs Vital Signs: Vital Signs - 24 hr 11/13/22 14:00 11/13/22 13:42 11/13/22 13:53 Temperature 97.5 F L Pulse Rate 80 94 81 Respiratory Rate 18 14 16 B
[2022-11-14] MEDS: POTASSIUM CHLORIDE INJ 40 MEQ in SODIUM CHLORIDE 0.9% IV 500 ML 130 MEQ IVPB (11:12)
[2022-11-14 13:44] VITALS: BP 112/64; PULSE 92; RESP 18; TEMP 36.6; O2SAT 97
[2022-11-14] MEDS: SODIUM CHLORIDE 0.9% IV 1,000 ML 100 ML IV CONT (14:20)
[2022-11-14 21:35] VITALS: BP 122/80; PULSE 98; RESP 14; TEMP 36.9; O2SAT 92
[2022-11-15] MEDS: SODIUM CHLORIDE 0.9% IV 1,000 ML 100 ML IV CONT (00:14)
[2022-11-15] MEDS: HYDROmorphone HCL INJ (*CRX) 1 MG/ML SYR IV PUSH (03:08)
[2022-11-15 06:00] VITALS: BP 113/66; PULSE 79; RESP 14; TEMP 37.3; O2SAT 94
[2022-11-15 06:17] VITALS: TEMP 37.3
[2022-11-15 06:18] LABS: Basophils Percent Auto 0.4 % (0.2-1.2); Eosinophils Absolute Auto 0.3 K/mm3 (0-0.3); Eosinophils Percent Auto 2.4 % (0-4.4); Hematocrit 32.5 % (37.0-47.0); Hemoglobin 10.5 g/dL (12.0-15.0); Immature Granulocyte Absolute 0.06 K/mm3 (0.00-0.031); Immature Granulocyte Percent A 0.6 % (0-0.5); Lymphocytes Absolute Auto 0.83 K/mm3 (0.9-3.2); Lymphocytes Percent Auto 7.8 % (18.3-44.2); Mean Corpuscular HGB Conc 32.3 g/dl (32-36); Mean Corpuscular Hemoglobin 28.9 pg (26-34); Mean Corpuscular Volume 89.5 fl (80-100); Mean Platelet Volume 10.5 fl (7.4-10.4); Monocytes Absolute Auto 0.9 K/mm3 (0.1-0.6); Neutrophils Absolute Auto 8.6 K/mm3 (1.3-6.7); Neutrophils Percent Auto 80.8 % (45.5-73.1); Platelet Count Result 278 k/mm3 (150-375); Red Blood Count 3.63 M/mm3 (4.2-5.4); White Blood Count 10.6 K/mm3 (4.5-10.0)
[2022-11-15 06:35] LABS: Alanine Aminotransferase 24 U/L (6-35); Alkaline Phosphatase 103 U/L (38-126); Anion Gap 3 mmol/L (8-16); Aspartate Amino Transferase 50 U/L (14-36); Bilirubin,Total 0.8 mg/dL (0.2-1.3); Blood Urea Nitrogen 4 mg/dL (7-17); Calcium 7.8 mg/dL (8.4-10.2); Carbon Dioxide 25 mmol/L (22-30); Chloride 108 mmol/L (98-107); Estimated CRCL calculation 102 ml/min; Estimated Glomerular Filt Rate > 60; Glucose 108 mg/dL (65-110); Potassium 3.2 mmol/L (3.4-5.0); Sodium 136 mmol/L (137-145)
[2022-11-15] MEDS: POTASSIUM CHLORIDE INJ 40 MEQ in SODIUM CHLORIDE 0.9% IV 500 ML 130 MEQ IVPB (09:04)
[2022-11-15] MEDS: ENOXAPARIN 40 MG/0.4 ML SYRINGE SUB-Q (09:05)
[2022-11-15] MEDS: HYDROmorphone HCL INJ (*CRX) 2 MG/ML VIAL 0.5 MG IV PUSH (10:52)
[2022-11-15] MEDS: ONDANSETRON INJ 4 MG/2 ML VIAL IV PUSH ×3 (10:55→20:25)
--- NOTE | 2022-11-15 11:45 | PM.IMPN ---
Progress Note: A&P Assessment and Plan (1) Perforated diverticulum of intestine: Code(s): K57.80 - Diverticulitis of intestine, part unspecified, with perforation and abscess without bleeding Status: Acute Assessment and Plan: Patient presented with abdominal pain. CT on admission showed complicated sigmoid diverticulitis with microperforation and early abscess formation underwent CT-guided transgluteal abscess drainage today drain present Trend output abscess cultures no growth to date continue IV Zosyn appreciate general surgery recommendations advanced to full liquids Stop IV fluids for now analgesics and antiemetics available as needed, oxycodone added for oral pain medication WBC elevated at 15.5 on 11/14/22, currently down to 10.6 Trend labs (2) Diverticulitis of large intestine with perforation and abscess: Qualifiers: Diverticulitis bleeding: without bleeding Qualified Code(s): K57.20 - Diverticulitis of large intestine with perforation and abscess without bleeding Code(s): K57.20 - Diverticulitis of large intestine with perforation and abscess without bleeding Status: Acute Assessment and Plan: See above (3) Hypokalemia: Code(s): E87.6 - Hypokalemia Status: Acute Assessment and Plan: Potassium is 3.2 Likely secondary to NPO diet Supplement potassium with 40mcg IV once repeated Continue to trend labs Supplement as indicated (4) Tobacco abuse: Code(s): Z72.0 - Tobacco use Status: Acute Assessment and Plan: Nicotine patch as needed during admission Smoking cessation education given Time Spent With Patient Time: 48 minutes Time with patient: Greater than 35 minutes Subjective Date/time seen: 11/15/22 1145 Interval history: 11/15/22 1145 Patient seems to be doing well today. She did state that she had to you to bowel movements however she is still little nauseous. She currently denies any chest pain, shortness a breath, weakness or fatigue. She also has saying that she feels like she could do better with oral pain medicines. Drain is putting out some yellow clear fluid still. Temperature did jump to 99.1 today most likely from her having too many blankets on. Talked to General surgery who is advancing her diet today. 11/14/22 1100 patient is lying in bed. Patient states that she is having pain however it is better controlled with the medication every 4 hours. She also stated that she is nauseous however she would like to try something to eat at least clear liquids As she stated that she is thirsty. She denies any chest pain, shortness a breath, vomiting. She does states she is extremely weak and nauseated all the time. She also stated that she had the sweats overnight. White count is still elevated at 15.5. 11/13/2022 1140 Billie Riddle is a 52-year-old female with a history of depression, anxiety, colitis, diverticulitis who is seen in follow-up for diverticulitis with perforation and abscess.? She is feeling poorly today.? She endorses 10/10 lower abdominal pain.? she complains of nausea but no episodes of emesis.? Her mouth is dry since she has been NPO today.? Reports having a bowel movement yesterday.? She endorses chills and sweats but no fever.? Denies urinary symptoms.? She feels anxious about being hospitalized 11/13/22? 00:30 This is a 52-year-old female with past medical history significant for diverticulosis, diverticulitis, smokes 1 pack of cigarettes daily.? Patient presents to the emergency room due to 3 days or so of left lower quadrant pain with tenesmus, poor appetite, nausea, denies fevers, rigors or chills vomiting patient had been prescribed amoxicillin but patient got gradually worse and presented to the emergency room. Review of Systems Review of Systems: All systems reviewed & are unremarkable
--- NOTE | 2022-11-15 12:12 | PM.PNGS ---
Progress Note: A&P Assessment and Plan (1) Diverticulitis of large intestine with perforation and abscess: Qualifiers: Diverticulitis bleeding: without bleeding Qualified Code(s): K57.20 - Diverticulitis of large intestine with perforation and abscess without bleeding Code(s): K57.20 - Diverticulitis of large intestine with perforation and abscess without bleeding Status: Acute Assessment and Plan: Advance diet to full liquids today. Stop IV fluids. Transition to oral pain meds. Possibly home tomorrow if able to advance diet. Continue watching drain for now. Will possibly remove drain before discharge if output is accurately recorded and is tapering down. Subjective Subjective Date/Time Seen: 11/15/22 12:12 Interval history: Feeling better today. Bowels moving. Pain improving. No fevers. Exam GI: Inspection: non-distended and other (pigtail drain with minimal serous output) GI Palp: Yes Soft to palpation, Yes Tenderness to palpation present (GI) (minimal LLQ) and No Guarding due to palpation present (GI) Auscultation: normal bowel sounds Objective Data Vital Signs Vital Signs: Vital Signs - 24 hr 11/14/22 13:44 11/14/22 21:35 11/15/22 06:00 Temperature 36.6 C 36.9 C 37.3 C Pulse Rate 92 98 79 Respiratory Rate 18 14 14 Blood Pressure 112/64 122/80 113/66 Pulse Oximetry 97 92 94 11/15/22 06:17 Temperature 37.3 C Pulse Rate Respiratory Rate Blood Pressure Pulse Oximetry Intake/Output Intake/Output: Intake & Output 11/12/22 11/13/22 11/14/22 11/15/22 23:59 23:59 23:59 23:59 Intake Total 1100 2250 2940 2186 Output Total 1150 1450 1100 Balance 1100 1100 1490 1086 Meds/Results Medications: Active Medications Generic Name Dose Route Start Last Admin Trade Name Freq PRN Reason Stop Dose Admin Enoxaparin Sodium 40 mg 11/14/22 09:00 11/15/22 09:05 Enoxaparin 40 Mg/0.4 Ml Syringe SUB-Q 40 mg DAILY OLIVIA Administration Piperacillin/Tazobactam/Dextrose 3.375 gm in 50 mls @ 100 mls/hr 11/13/22 06:00 11/15/22 06:06 Zosyn 3.375 Gm/D5w 50ml Pm IVPB Infused Q6H OLIVIA Infusion Lorazepam 0.5 mg 11/13/22 10:55 Lorazepam Inj (*Crx) 2 Mg/Ml Vial IV PUSH Q6H PRN Anxiety Ondansetron HCl 4 mg 11/12/22 21:56 11/15/22 10:55 Ondansetron Inj 4 Mg/2 Ml Vial IV PUSH 4 mg Q4H PRN Administration Nausea Oxycodone HCl 2.5 mg 11/15/22 11:54 Oxycodone Hcl (*Crx) 2.5 Mg Tab Ir PO Q4H PRN Pain Rated 4-6 Oxycodone HCl 5 mg 11/15/22 11:54 Oxycodone Hcl (*Crx) 5 Mg Tab Ir PO Q4H PRN Pain Rated 7-10 Promethazine HCl 12.5 mg 11/13/22 12:33 11/14/22 09:16 Promethazine Hcl 25 Mg/Ml Ampul IV PUSH 12.5 mg Q4H PRN Administration Nausea And Vomiting Radiology Results: ITS Impressions Abdomen/Pelvis CT 11/12/22 21:14 IMPRESSION: Complicated sigmoid diverticulitis, with evidence of microperforation and moderate volume, peripherally enhancing adjacent free fluid in the left/deep pelvis, suggesting early abscess formation. Catheter Placement CT 11/13/22 14:28 IMPRESSION: 1. Successful CT-guided transgluteal pelvic abscess drainage. 2. 10 mL james, turbid fluid was sent for aerobic and anaerobic cultures. Labs Labs: Laboratory Results - last 24 hr 11/15/22 11/15/22 05:43 05:43 WBC 10.6 H RBC 3.63 L Hgb 10.5 L Hct 32.5 L MCV 89.5 MCH 28.9 MCHC 32.3 RDW 15.0 H Plt Count 278 MPV 10.5 H Immature Gran % (Auto) 0.6 H Neut % (Auto) 80.8 H Lymph % (Auto) 7.8 L [place] % (Auto) 8.0 Eos % (Auto) 2.4 Baso % (Auto) 0.4 Lymph # (Auto) 0.83 L [place] # (Auto) 0.9 H Eos # (Auto) 0.3 Baso # (Auto) 0.0 Abs Immat Gran (auto) 0.06 H Absolute Neuts (auto) 8.6 H Absolute Nucleated RBC 0.0 Nucleated RBC % 0.0 Sodium 136 L Potassium 3.2 L Chloride 108 H Carbon Dioxide 25 Anion Gap 3 L BUN 4 L Creatinine 0.
[2022-11-15] MEDS: oxyCODONE HCL (*CRX) 2.5 MG TAB IR PO ×2 (12:34→16:31)
[2022-11-15 14:00] VITALS: BP 128/82; PULSE 81; RESP 22; TEMP 36; O2SAT 97
[2022-11-15 17:10] LABS: Potassium 3.5 mmol/L (3.4-5.0)
[2022-11-15] MEDS: oxyCODONE HCL (*CRX) 5 MG TAB IR PO (20:25)
[2022-11-15 22:00] VITALS: BP 133/83; PULSE 85; RESP 16; TEMP 36.6; O2SAT 97
[2022-11-16] MEDS: oxyCODONE HCL (*CRX) 5 MG TAB IR PO ×5 (00:29→23:26)
[2022-11-16 06:00] VITALS: BP 142/85; PULSE 94; RESP 16; TEMP 36.1; O2SAT 97
[2022-11-16 06:16] LABS: Hematocrit 33.3 % (37.0-47.0); Mean Corpuscular Hemoglobin 29.3 pg (26-34); Mean Corpuscular Volume 88.8 fl (80-100); Mean Platelet Volume 10.5 fl (7.4-10.4); Platelet Count Result 307 k/mm3 (150-375); Red Blood Count 3.75 M/mm3 (4.2-5.4); Red Cell Distribution Width 14.8 % (11.5-14.5)
[2022-11-16 06:30] LABS: Anion Gap 5 mmol/L (8-16); Blood Urea Nitrogen 2 mg/dL (7-17); Carbon Dioxide 26 mmol/L (22-30); Chloride 104 mmol/L (98-107); Estimated CRCL calculation 102 ml/min; Estimated Glomerular Filt Rate > 60; Glucose 88 mg/dL (65-110); Magnesium 1.9 mg/dL (1.6-2.3); Potassium 3.2 mmol/L (3.4-5.0); Sodium 135 mmol/L (137-145)
[2022-11-16] MEDS: ENOXAPARIN 40 MG/0.4 ML SYRINGE SUB-Q (09:08)
[2022-11-16] MEDS: oxyCODONE HCL (*CRX) 2.5 MG TAB IR PO ×3 (09:15→20:51)
[2022-11-16] MEDS: POTASSIUM CHLORIDE 20 MEQ TABLET 40 MEQ PO (10:00)
[2022-11-16] MEDS: POTASSIUM CHLORIDE INJ 40 MEQ in SODIUM CHLORIDE 0.9% IV 500 ML 130 MEQ IVPB (11:30)
--- NOTE | 2022-11-16 11:57 | PM.PNGS ---
Progress Note: A&P Assessment and Plan (1) Diverticulitis of large intestine with perforation and abscess: Qualifiers: Diverticulitis bleeding: without bleeding Qualified Code(s): K57.20 - Diverticulitis of large intestine with perforation and abscess without bleeding Code(s): K57.20 - Diverticulitis of large intestine with perforation and abscess without bleeding Status: Acute Assessment and Plan: Tolerating low fiber diet. OK to discharge this afternoon. Moxifloxacin x 10 days. Will have patient follow up in office in 2 weeks. Discharge instructions discussed with patient. Subjective Subjective Date/Time Seen: 11/16/22 11:57 Interval history: Pain improving. Bowels moving. Tolerating low fiber diet. No fevers. Exam GI: Inspection: other (pigtail drain with minimal serous output) GI Palp: Yes Soft to palpation, Yes Tenderness to palpation present (GI) (minimal LLQ), No Guarding due to palpation present (GI) and No Rebound tenderness present Auscultation: normal bowel sounds Objective Data Vital Signs Vital Signs: Vital Signs - 24 hr 11/15/22 14:00 11/15/22 22:00 11/16/22 06:00 Temperature 36.0 C L 36.6 C 36.1 C L Pulse Rate 81 85 94 Respiratory Rate 22 H 16 16 Blood Pressure 128/82 133/83 142/85 H Pulse Oximetry 97 97 97 Intake/Output Intake/Output: Intake & Output 11/13/22 11/14/22 11/15/22 11/16/22 23:59 23:59 23:59 23:59 Intake Total 2250 2940 3246 572 Output Total 1150 1450 1100 20 Balance 1100 1490 2146 552 Meds/Results Medications: Active Medications Generic Name Dose Route Start Last Admin Trade Name Freq PRN Reason Stop Dose Admin Calcium Carbonate 200 mg 11/15/22 16:35 Calcium Carbonate (Tums) 500 Mg (200 Mg Elemental) PO Q6H PRN Indigestion Enoxaparin Sodium 40 mg 11/14/22 09:00 11/16/22 09:08 Enoxaparin 40 Mg/0.4 Ml Syringe SUB-Q 40 mg DAILY OLIVIA Administration Piperacillin/Tazobactam/Dextrose 3.375 gm in 50 mls @ 100 mls/hr 11/13/22 06:00 11/16/22 05:39 Zosyn 3.375 Gm/D5w 50ml Pm IVPB 100 mls/hr Q6H OLIVIA Administration Potassium Chloride 40 meq/ 520 mls @ 130 mls/hr 11/16/22 09:20 Sodium Chloride IVPB 11/16/22 13:19 ONCE ONE Lorazepam 0.5 mg 11/13/22 10:55 Lorazepam Inj (*Crx) 2 Mg/Ml Vial IV PUSH Q6H PRN Anxiety Ondansetron HCl 4 mg 11/12/22 21:56 11/15/22 20:25 Ondansetron Inj 4 Mg/2 Ml Vial IV PUSH 4 mg Q4H PRN Administration Nausea Oxycodone HCl 2.5 mg 11/15/22 11:54 11/16/22 09:15 Oxycodone Hcl (*Crx) 2.5 Mg Tab Ir PO 2.5 mg Q4H PRN Administration Pain Rated 4-6 Oxycodone HCl 5 mg 11/15/22 11:54 11/16/22 05:39 Oxycodone Hcl (*Crx) 5 Mg Tab Ir PO 5 mg Q4H PRN Administration Pain Rated 7-10 Promethazine HCl 12.5 mg 11/13/22 12:33 11/14/22 09:16 Promethazine Hcl 25 Mg/Ml Ampul IV PUSH 12.5 mg Q4H PRN Administration Nausea And Vomiting Radiology Results: ITS Impressions Abdomen/Pelvis CT 11/12/22 21:14 IMPRESSION: Complicated sigmoid diverticulitis, with evidence of microperforation and moderate volume, peripherally enhancing adjacent free fluid in the left/deep pelvis, suggesting early abscess formation. Catheter Placement CT 11/13/22 14:28 IMPRESSION: 1. Successful CT-guided transgluteal pelvic abscess drainage. 2. 10 mL james, turbid fluid was sent for aerobic and anaerobic cultures. Labs Labs: Laboratory Results - last 24 hr 11/15/22 11/16/22 11/16/22 16:52 05:43 05:43 WBC 13.0 H RBC 3.75 L Hgb 11.0 L Hct 33.3 L MCV 88.8 MCH 29.3 MCHC 33.0 RDW 14.8 H Plt Count 307 MPV 10.5 H Sodium 135 L Potassium 3.5 3.2 L Chloride 104 Carbon Dioxide 26 Anion Gap 5 L BUN 2 L Creatinine 0.60 L Estim Creat Clear Calc 102 Estimated GFR > 60 Glucose 88 Calcium 8.0 L Magnesium 1.9
[2022-11-16] MEDS: ONDANSETRON INJ 4 MG/2 ML VIAL IV PUSH (12:06)
--- NOTE | 2022-11-16 13:00 | PM.DS ---
DS: Admitting Diagnosis Discharge Date 11/16/22 0945 Admitting Diagnosis Diverticulitis with perforation and abscess DS: Discharge Diagnosis Discharge Diagnosis (1) Perforated diverticulum of intestine: Code(s): K57.80 - Diverticulitis of intestine, part unspecified, with perforation and abscess without bleeding Status: Acute Assessment and Plan: Patient presented with abdominal pain. CT on admission showed complicated sigmoid diverticulitis with microperforation and early abscess formation underwent CT-guided transgluteal abscess drainage today drain present Trend output abscess cultures no growth to date continue IV Zosyn appreciate general surgery recommendations advanced to full liquids Stop IV fluids for now analgesics and antiemetics available as needed, oxycodone added for oral pain medication WBC elevated at 15.5 on 11/14/22, currently down to 10.6 Trend labs (2) Diverticulitis of large intestine with perforation and abscess: Qualifiers: Diverticulitis bleeding: without bleeding Qualified Code(s): K57.20 - Diverticulitis of large intestine with perforation and abscess without bleeding Code(s): K57.20 - Diverticulitis of large intestine with perforation and abscess without bleeding Status: Acute Assessment and Plan: See above (3) Hypokalemia: Code(s): E87.6 - Hypokalemia Status: Acute Assessment and Plan: Potassium is 3.2 Likely secondary to NPO diet Supplement potassium with 40mcg IV once repeated Continue to trend labs Supplement as indicated (4) Tobacco abuse: Code(s): Z72.0 - Tobacco use Status: Acute Assessment and Plan: Nicotine patch as needed during admission Smoking cessation education given DS: Summary Hospital Course Hospital Course: Patient is a 52-year-old female with a past medical history of diverticulitis, diverticulosis, smoker who presented the emergency room with complaints of left lower quadrant pain, poor appetite, nausea. CT of the abdomen and pelvis was done and did show complicated sigmoid diverticulitis with evidence of microperforation and moderate volume peripherally enhancing edges sent free fluid in the left the pelvis suggesting early abscess formation. General surgery had been consulted and drain was placed by Interventional Radiology. Patient was NPO and IV fluids were given. Patient was also getting IV medications and anti nausea medications as well. Drain output was on trend and diet was slowly advanced. WBCs have been up and down however patient has remained stable. Currently drain is putting out of minimal output of yellow clear fluid. General surgery remove the drain. Patient has been tolerating a low-fiber diet. Currently patient is stable for discharge per labs and vital signs. Patient is excited is ready to go home. She denies any current chest pain, shortness a breath, nausea, vomiting, diarrhea or constipation. Status at Discharge Functional status at discharge: independent ambulation Overall status at discharge: patient is progressing back to baseline Time Spent with Patient Time attestation: Total time spent providing and/or coordinating discharge services: 53 minutes Time spent: Greater than 30 minutes Specific discharge activities: Diagnostic testing, chart review, developing a treatment plan, education, care coordination documentation, physical exam, result review Exam Narrative: General: well-nourished, well-appearing 52-year-old female, laying in bed, comfortable, NARD Neuro: awake, alert and oriented x4, speech clear, no focal neuro deficits noted HEENMT: normocephalic, atraumatic, EOMI, sclerae anicteric, moist oral mucosa Respiratory: Clear to auscultation bilaterally without crackles, rhonchi or wheezes, nonlabored breathing Cardio: regular rate, regular rhythm with S1-S2 Abd
[2022-11-16 14:00] VITALS: BP 157/93; PULSE 90; RESP 18; TEMP 36.5; O2SAT 97
--- NOTE | 2022-11-16 15:30 | PM.IMPN ---
Progress Note: A&P Assessment and Plan (1) Perforated diverticulum of intestine: Code(s): K57.80 - Diverticulitis of intestine, part unspecified, with perforation and abscess without bleeding Status: Acute Assessment and Plan: Patient presented with abdominal pain. CT on admission showed complicated sigmoid diverticulitis with microperforation and early abscess formation underwent CT-guided transgluteal abscess drainage Drain removed by surgery on 11/16/22 abscess cultures no growth to date continue IV Zosyn appreciate general surgery recommendations Decreased to clear liquids Stop IV fluids for now analgesics and antiemetics available as needed, oxycodone added for oral pain medication WBC elevated at 15.5 on 11/14/22, currently stable at 8.[address] ordered due to condition change, read showed increased gas, stable abscess (2) Diverticulitis of large intestine with perforation and abscess: Qualifiers: Diverticulitis bleeding: without bleeding Qualified Code(s): K57.20 - Diverticulitis of large intestine with perforation and abscess without bleeding Code(s): K57.20 - Diverticulitis of large intestine with perforation and abscess without bleeding Status: Acute Assessment and Plan: See above (3) Hypokalemia: Code(s): E87.6 - Hypokalemia Status: Acute Assessment and Plan: Potassium is 3.2, repeat was 3.7 Supplement potassium with 40mcg IV and 40meq PO Continue to trend labs Supplement as indicated (4) Tobacco abuse: Code(s): Z72.0 - Tobacco use Status: Acute Assessment and Plan: Nicotine patch as needed during admission Smoking cessation education given Plan Chest pain workup EKG-stable SR in the 90s Trop negative Chest xray stable Time Spent With Patient Time: 72 minutes 36 minutes of critical care time Time with patient: Greater than 35 minutes Subjective Date/time seen: 11/16/22 0945, 15:30 Interval history: 11/16/22 0945, 1530 Patient seems to be doing well. Patient did state that she was still having some issues with pain however she was able to tolerate her low-fiber diet. Currently she is denying any chest pain, shortness a breath, weakness, fatigue, diarrhea constipation. This afternoon nursing called and stated the patient felt a pop within her abdomen and she was experience the pain. The drain had been removed by Dr. Kang earlier in the afternoon. At 1530, was called by the nurse, patient was complaining of chest pain, and severe epigastric pain. Spoke with general surgery about current findings. Plan was to give pain medication and to see if pain is improved or not, if the pain is not any better,. At this time patient was reevaluated and chest pain workup was initated. EKG did not have any acute findings, axis changes, ectopy, abnormal rhythms, and showed SR with a HR in the 90s. Lab work was ordered, an chest xray. At 1745 called nurse about labs. At that time, pain was not any better. CT of the abdomen at that time was ordered. At 1900 read was available and was reviewed at that time. Instructed nurse to call the surgeon as the CT did show findings of increased gas. Labs and vital signs stable at this time. 11/15/22 1145 Patient seems to be doing well today. She did state that she had to you to bowel movements however she is still little nauseous. She currently denies any chest pain, shortness a breath, weakness or fatigue. She also has saying that she feels like she could do better with oral pain medicines. Drain is putting out some yellow clear fluid still. Temperature did jump to 99.1 today most likely from her having too many blankets on. Talked to General surgery who is advancing her diet today. 11/14/22 1100 patient is lying in bed. Patient states that she is having pain howev
--- NOTE | 2022-11-16 15:47 | PC.NURSE ---
Patient Reported new onset pain when trying to have a BM, she stated she I felt a pop, felt dizzy and went back to bed to call you . Called Surgery and Hospitalist to report, see new orders. Patient reporting 10/10 pain described as cramping and pressure. Patient's VSS, abdomen soft, tender to palpitation, no current nausea or vomiting, will continue to monitor. Haylee Drake RN
--- NOTE | 2022-11-16 16:17 | ECG_ITS ---
Measurements Intervals [place] Rate: 98 P: 51 IL: 108 QRS: 60 QRSD: 74 T: 49 QT: 331 QTc: 423 Interpretive Statements SINUS RHYTHM WITH SHORT IL INTERVAL POSSIBLE LEFT ATRIAL ENLARGEMENT BASELINE ARTIFACT- II, III, AVF, V5 BORDERLINE ECG NO PREVIOUS ECG AVAILABLE FOR COMPARISON Electronically Signed On 11-17-2022 6:46:53 PSYCHOLOGY ASSISTANT by Vernon Ortiz D.O.
[2022-11-16] MEDS: HYDROmorphone HCL INJ (*CRX) 1 MG/ML SYR IV PUSH (16:22)
[2022-11-16 16:47] LABS: Basophils Absolute Auto 0.1 K/mm3 (0.0-0.1); Basophils Percent Auto 0.6 % (0.2-1.2); Eosinophils Absolute Auto 0.1 K/mm3 (0-0.3); Eosinophils Percent Auto 0.9 % (0-4.4); Hematocrit 39.4 % (37.0-47.0); Immature Granulocyte Absolute 0.05 K/mm3 (0.00-0.031); Immature Granulocyte Percent A 0.6 % (0-0.5); Lymphocytes Absolute Auto 1.62 K/mm3 (0.9-3.2); Lymphocytes Percent Auto 20.1 % (18.3-44.2); Mean Corpuscular Hemoglobin 29.3 pg (26-34); Mean Corpuscular Volume 88.9 fl (80-100); Monocytes Absolute Auto 0.3 K/mm3 (0.1-0.6); Monocytes Percent Auto 3.4 % (2.6-8.5); Neutrophils Percent Auto 74.4 % (45.5-73.1); Platelet Count Result 346 k/mm3 (150-375); Red Blood Count 4.43 M/mm3 (4.2-5.4); Red Cell Distribution Width 14.6 % (11.5-14.5)
[2022-11-16 16:56] LABS: Lactic Acid Reflex 1.6 mmol/L (0.7-2.0)
[2022-11-16 16:57] LABS: Alanine Aminotransferase 32 U/L (6-35); Albumin Level 3.4 g/dL (3.5-5.1); Alkaline Phosphatase 132 U/L (38-126); Anion Gap 6 mmol/L (8-16); Aspartate Amino Transferase 41 U/L (14-36); Bilirubin,Total 0.6 mg/dL (0.2-1.3); Blood Urea Nitrogen 2 mg/dL (7-17); Calcium 8.2 mg/dL (8.4-10.2); Carbon Dioxide 27 mmol/L (22-30); Chloride 104 mmol/L (98-107); Estimated CRCL calculation 102 ml/min; Estimated Glomerular Filt Rate > 60; Glucose 123 mg/dL (65-110); Potassium 3.7 mmol/L (3.4-5.0); Sodium 137 mmol/L (137-145)
[2022-11-16 17:09] LABS: Troponin I < 0.012 ng/mL (0.000-0.034)
[2022-11-16] MEDS: METOCLOPRAMIDE HCL INJ 10 MG/2 ML VIAL IV PUSH (17:46)
--- NOTE | 2022-11-16 19:32 | PC.NURSE ---
Results of CT abd/Pelvis resulted, Dr. Gamez cellphone called, left VM. Called exchange number, on hold for 10 minutes. Gave report to oncoming RN for follow up. Haylee Drake RN
[2022-11-16 22:00] VITALS: BP 108/72; PULSE 119; RESP 18; TEMP 36; O2SAT 97
[2022-11-16 23:16] VITALS: BP 137/49; PULSE 70; RESP 18; TEMP 36.8; O2SAT 96
[2022-11-17] MEDS: ONDANSETRON INJ 4 MG/2 ML VIAL IV PUSH (00:06)
[2022-11-17] MEDS: KCL 20 MEQ/D5/0.45% SOD CHL 1,000 ML 100 ML IV CONT (00:06)
[2022-11-17] MEDS: oxyCODONE HCL (*CRX) 2.5 MG TAB IR PO ×5 (02:30→20:56)
[2022-11-17 05:14] VITALS: BP 98/66; PULSE 94; RESP 18; TEMP 36.3; O2SAT 94
[2022-11-17] MEDS: oxyCODONE HCL (*CRX) 5 MG TAB IR PO ×5 (05:43→23:27)
[2022-11-17 06:08] LABS: Basophils Absolute Auto 0.1 K/mm3 (0.0-0.1); Basophils Percent Auto 0.8 % (0.2-1.2); Eosinophils Percent Auto 0.3 % (0-4.4); Immature Granulocyte Absolute 0.07 K/mm3 (0.00-0.031); Immature Granulocyte Percent A 0.6 % (0-0.5); Lymphocytes Absolute Auto 1.56 K/mm3 (0.9-3.2); Lymphocytes Percent Auto 13.3 % (18.3-44.2); Mean Corpuscular HGB Conc 33.3 g/dl (32-36); Mean Corpuscular Hemoglobin 29.6 pg (26-34); Mean Corpuscular Volume 88.7 fl (80-100); Mean Platelet Volume 10.5 fl (7.4-10.4); Monocytes Absolute Auto 0.5 K/mm3 (0.1-0.6); Monocytes Percent Auto 4.4 % (2.6-8.5); Neutrophils Absolute Auto 9.5 K/mm3 (1.3-6.7); Neutrophils Percent Auto 80.6 % (45.5-73.1); Platelet Count Result 327 k/mm3 (150-375); Red Blood Count 4.06 M/mm3 (4.2-5.4); Red Cell Distribution Width 14.8 % (11.5-14.5); White Blood Count 11.7 K/mm3 (4.5-10.0)
[2022-11-17 06:21] LABS: Alanine Aminotransferase 27 U/L (6-35); Alkaline Phosphatase 95 U/L (38-126); Anion Gap 3 mmol/L (8-16); Aspartate Amino Transferase 30 U/L (14-36); Blood Urea Nitrogen 4 mg/dL (7-17); Calcium 8.1 mg/dL (8.4-10.2); Carbon Dioxide 31 mmol/L (22-30); Chloride 102 mmol/L (98-107); Estimated CRCL calculation 89 ml/min; Estimated Glomerular Filt Rate > 60; Glucose 132 mg/dL (65-110); Magnesium 1.7 mg/dL (1.6-2.3); Potassium 3.5 mmol/L (3.4-5.0); Sodium 136 mmol/L (137-145)
[2022-11-17] MEDS: ENOXAPARIN 40 MG/0.4 ML SYRINGE SUB-Q (08:19)
--- NOTE | 2022-11-17 09:31 | PM.PNGS ---
Progress Note: A&P Assessment and Plan (1) Diverticulitis of large intestine with perforation and abscess: Qualifiers: Diverticulitis bleeding: without bleeding Qualified Code(s): K57.20 - Diverticulitis of large intestine with perforation and abscess without bleeding Code(s): K57.20 - Diverticulitis of large intestine with perforation and abscess without bleeding Status: Acute Assessment and Plan: Acutely worsened yesterday before discharge. I reviewed the repeat CT. These findings are concerning for failed nonoperative treatment, and I discussed this would be reason to strongly consider proceeding with surgery. Patient still does not want surgery and would like to try continued antibiotics and observation. I discussed that it would not be recommended to go home today given her symptoms worsened with less than 24 hours of a solid diet. Will continue clear liquids and IV antibiotics today. Repeat labs tomorrow. Could advance diet tomorrow if improving. If anything is looking worse, will have to consider surgery. Subjective Subjective Date/Time Seen: 11/17/22 09:31 Interval history: Patient was about to be discharged yesterday when she experienced severe recurrent abdominal pain that felt like when she first came in to the ED. Discharge was canceled and repeat CT done. She says her pain is better this morning, but she is still requiring the pain meds. She denies fevers. She is upset because she wants to go home. Exam GI: Inspection: non-distended GI Palp: Yes Soft to palpation, Yes Tenderness to palpation present (GI) (LLQ), No Guarding due to palpation present (GI) and No Rebound tenderness present Objective Data Vital Signs Vital Signs: Vital Signs - 24 hr 11/16/22 14:00 11/16/22 20:00 11/16/22 22:00 Temperature 36.5 C 36.0 C L Pulse Rate 90 119 H Respiratory Rate 18 18 Blood Pressure 157/93 H 108/72 Pulse Oximetry 97 97 Oxygen Delivery Room Air 11/16/22 23:16 11/17/22 05:14 Temperature 36.8 C 36.3 C L Pulse Rate 70 94 Respiratory Rate 18 18 Blood Pressure 137/49 L 98/66 L Pulse Oximetry 96 94 Oxygen Delivery Intake/Output Intake/Output: Intake & Output 11/14/22 11/15/22 11/16/22 11/17/22 23:59 23:59 23:59 23:59 Intake Total 2940 3246 1102 250 Output Total 1450 1100 320 Balance 1490 2146 782 250 Meds/Results Medications: Active Medications Generic Name Dose Route Start Last Admin Trade Name Freq PRN Reason Stop Dose Admin Calcium Carbonate 200 mg 11/15/22 16:35 Calcium Carbonate (Tums) 500 Mg (200 Mg Elemental) PO Q6H PRN Indigestion Enoxaparin Sodium 40 mg 11/14/22 09:00 11/17/22 08:19 Enoxaparin 40 Mg/0.4 Ml Syringe SUB-Q 40 mg DAILY OLIVIA Administration Piperacillin/Tazobactam/Dextrose 3.375 gm in 50 mls @ 100 mls/hr 11/13/22 06:00 11/17/22 08:21 Zosyn 3.375 Gm/D5w 50ml Pm IVPB Infused Q6H OLIVIA Infusion Potassium Chloride/Dextrose/Sod Cl 1,000 mls @ 100 mls/hr 11/16/22 23:45 11/17/22 00:06 Kcl 20 Meq/D5/0.45% Sod Chl IV CONT 100 mls/hr .Q10H OLIVIA Administration Lorazepam 0.5 mg 11/13/22 10:55 Lorazepam Inj (*Crx) 2 Mg/Ml Vial IV PUSH Q6H PRN Anxiety Ondansetron HCl 4 mg 11/12/22 21:56 11/17/22 00:06 Ondansetron Inj 4 Mg/2 Ml Vial IV PUSH 4 mg Q4H PRN Administration Nausea Oxycodone HCl 2.5 mg 11/15/22 11:54 11/17/22 08:19 Oxycodone Hcl (*Crx) 2.5 Mg Tab Ir PO 2.5 mg Q4H PRN Administration Pain Rated 4-6 Oxycodone HCl 5 mg 11/15/22 11:54 11/17/22 05:43 Oxycodone Hcl (*Crx) 5 Mg Tab Ir PO 5 mg Q4H PRN Administration Pain Rated 7-10 Promethazine HCl 12.5 mg 11/13/22 12:33 11/14/22 09:16 Promethazine Hcl 25 Mg/Ml Ampul IV PUSH 12.5 mg Q4H PRN Administration Nausea And Vomiting Radiology Results: ITS Impressions Catheter Placement CT 03/01/23 14:28 [address]PRESSION: 1[address]-guided transgluteal pelv
--- NOTE | 2022-11-17 09:45 | PM.IMPN ---
Progress Note: A&P Assessment and Plan (1) Perforated diverticulum of intestine: Code(s): K57.80 - Diverticulitis of intestine, part unspecified, with perforation and abscess without bleeding Status: Acute Assessment and Plan: Patient presented with abdominal pain. CT on admission showed complicated sigmoid diverticulitis with microperforation and early abscess formation underwent CT-guided transgluteal abscess drainage on 11/13/22 abscess cultures no growth to date continue IV Zosyn appreciate general surgery recommendations Decreased diet to clear liquids analgesics and antiemetics available as needed, oxycodone added for oral pain medication WBC elevated at 15.5 on 11/14/22, currently down to 11.[address] ordered due to condition change, read showed increased gas, stable abscess Surgery spoke with the patient regarding surgery, however, patient is not wanting surgery She will need to tolerate and advance diet accordingly (2) Diverticulitis of large intestine with perforation and abscess: Qualifiers: Diverticulitis bleeding: without bleeding Qualified Code(s): K57.20 - Diverticulitis of large intestine with perforation and abscess without bleeding Code(s): K57.20 - Diverticulitis of large intestine with perforation and abscess without bleeding Status: Acute Assessment and Plan: See above (3) Hypokalemia: Code(s): E87.6 - Hypokalemia Status: Acute Assessment and Plan: Potassium is 3.5 Likely secondary to NPO diet IV fluids with K given Continue to trend labs Supplement as indicated (4) Tobacco abuse: Code(s): Z72.0 - Tobacco use Status: Acute Assessment and Plan: Nicotine patch as needed during admission Smoking cessation education given Time Spent With Patient Time: 51 minutes Time with patient: Greater than 35 minutes Subjective Date/time seen: 11/17/22944 Interval history: 11/17/22944 Patient is lying in bed. Patient stated that she feels lot better than she did yesterday. She is still having quite a bit of pain a 5-6/10. She did state that she had some issues with nausea last night as she did get enough pain medicine because stated realize they had to orders for the same medicine. She did not sleep at all. Otherwise she denies any chest pain, shortness a breath, weakness, fatigue, diarrhea, constipation. Spoke with General surgery who stated that surgery has been offered however patient has declined at this time. Patient is really wanting to be discharged. Labs appear to be well at this time. 11/16/22 0945, 1530 Patient seems to be doing well. Patient did state that she was still having some issues with pain however she was able to tolerate her low-fiber diet. Currently she is denying any chest pain, shortness a breath, weakness, fatigue, diarrhea constipation. This afternoon nursing called and stated the patient felt a pop within her abdomen and she was experience the pain. The drain had been removed by Dr. Kang earlier in the afternoon. At 1530, was called by the nurse, patient was complaining of chest pain, and severe epigastric pain. Spoke with general surgery about current findings. Plan was to give pain medication and to see if pain is improved or not, if the pain is not any better,. At this time patient was reevaluated and chest pain workup was initated. EKG did not have any acute findings, axis changes, ectopy, abnormal rhythms, and showed SR with a HR in the 90s. Lab work was ordered, an chest xray. At 1745 called nurse about labs. At that time, pain was not any better. CT of the abdomen at that time was ordered. At 1900 read was available and was reviewed at that time. Instructed nurse to call the surgeon as the CT did show findings of increased gas. Labs and vital signs stable at this tunde
[2022-11-17 14:00] VITALS: BP 117/77; PULSE 102; RESP 16; TEMP 37.3; O2SAT 96
[2022-11-17 21:20] VITALS: BP 119/76; PULSE 116; RESP 18; TEMP 36.4; O2SAT 95
[2022-11-18] MEDS: oxyCODONE HCL (*CRX) 5 MG TAB IR PO ×4 (04:57→23:11)
[2022-11-18 05:25] VITALS: BP 102/60; PULSE 92; RESP 18; TEMP 37.1; O2SAT 91
[2022-11-18 06:44] LABS: Basophils Percent Auto 0.3 % (0.2-1.2); Eosinophils Absolute Auto 0.2 K/mm3 (0-0.3); Eosinophils Percent Auto 1.4 % (0-4.4); Hematocrit 34.4 % (37.0-47.0); Hemoglobin 11.3 g/dL (12.0-15.0); Immature Granulocyte Absolute 0.16 K/mm3 (0.00-0.031); Lymphocytes Absolute Auto 1.53 K/mm3 (0.9-3.2); Mean Corpuscular HGB Conc 32.8 g/dl (32-36); Mean Corpuscular Volume 88.4 fl (80-100); Mean Platelet Volume 10.4 fl (7.4-10.4); Monocytes Absolute Auto 0.9 K/mm3 (0.1-0.6); Monocytes Percent Auto 5.8 % (2.6-8.5); Neutrophils Absolute Auto 12.5 K/mm3 (1.3-6.7); Neutrophils Percent Auto 81.5 % (45.5-73.1); Platelet Count Result 371 k/mm3 (150-375); Red Blood Count 3.89 M/mm3 (4.2-5.4); White Blood Count 15.3 K/mm3 (4.5-10.0)
[2022-11-18 07:05] LABS: Alanine Aminotransferase 35 U/L (6-35); Albumin Level 2.9 g/dL (3.5-5.1); Alkaline Phosphatase 105 U/L (38-126); Anion Gap 5 mmol/L (8-16); Aspartate Amino Transferase 54 U/L (14-36); Bilirubin,Total 0.8 mg/dL (0.2-1.3); Blood Urea Nitrogen 5 mg/dL (7-17); Calcium 8.1 mg/dL (8.4-10.2); Carbon Dioxide 31 mmol/L (22-30); Chloride 99 mmol/L (98-107); Estimated CRCL calculation 102 ml/min; Estimated Glomerular Filt Rate > 60; Glucose 96 mg/dL (65-110); Magnesium 1.8 mg/dL (1.6-2.3); Potassium 3.1 mmol/L (3.4-5.0); Sodium 135 mmol/L (137-145)
[2022-11-18] MEDS: ENOXAPARIN 40 MG/0.4 ML SYRINGE SUB-Q (08:02)
[2022-11-18] MEDS: POTASSIUM CHLORIDE 20 MEQ PACKET (FOR LIQUID) 40 MEQ PO (10:30)
--- NOTE | 2022-11-18 12:49 | PM.PNGS ---
Progress Note: A&P Assessment and Plan (1) Diverticulitis of large intestine with perforation and abscess: Qualifiers: Diverticulitis bleeding: without bleeding Qualified Code(s): K57.20 - Diverticulitis of large intestine with perforation and abscess without bleeding Code(s): K57.20 - Diverticulitis of large intestine with perforation and abscess without bleeding Status: Acute Assessment and Plan: WBC up slightly to 15.3k and mild tachycardia last night, but resolved this morning. Vital signs are stable today. She is showing signs of improvement. No peritoneal signs on exam. Will advance to full liquids today. Continue IV Zosyn Again discussed with the patient today that she could ultimately require surgery if she gets worse, but she currently wishes to still try conservative treatment as long as she continues to improve. Plan I have discussed the patient's case and plan of care with Dr. Gamez. Subjective Subjective Date/Time Seen: 11/18/22 11:49 Patient reports: no new complaints, tolerating liquids well, voiding w/o difficulty, flatus, no bowel movement (last BM 11/16) and afebrile Interval history: Patient seen and examined. Chart reviewed since last seen. She had an increase in pain on Friday prior to being discharged. Repeat CT abdomen/pelvis suggesting increase in free intraperitoneal air. Her diet was backed down NPO and restarted on clear liquids yesterday. This morning, she states her abdominal pain has continued to improve since Friday. She still has some lower abdominal pain that is being controlled with the oxycodone. She denies any nausea or vomiting. She has about 7 BMs on Friday and none since, but has been passing flatus. To note, she was tachycardic last night but this resolved into this morning. Vital signs are stable this morning. No other complaints at this time. She is anxious and tearful when talking to her today. She is frustrated with being in the hospital still, but no other issues. Exam Const: General: comfortable and no acute distress Orientation/consciousness: patient oriented x3 GI: Inspection: non-distended GI Palp: Yes Soft to palpation, Yes Tenderness to palpation present (GI) (RUQ and across the lower abdomen), No Guarding due to palpation present (GI) and No Rebound tenderness present Auscultation: normal bowel sounds Objective Data Vital Signs Vital Signs: Vital Signs - 24 hr 11/17/22 14:00 11/17/22 19:56 11/17/22 21:20 Temperature 99.2 F 97.5 F L Pulse Rate 102 H 116 H Respiratory Rate 16 18 Blood Pressure 117/77 119/76 Pulse Oximetry 96 95 Oxygen Delivery Room Air 11/18/22 05:25 11/18/22 08:00 Temperature 98.7 F Pulse Rate 92 Respiratory Rate 18 Blood Pressure 102/60 Pulse Oximetry 91 Oxygen Delivery Room Air Intake/Output Intake/Output: Intake & Output 11/15/22 11/16/22 11/17/22 11/18/22 23:59 23:59 23:59 23:59 Intake Total 3246 1102 1177 270 Output Total 1100 320 Balance 2146 782 1177 270 Meds/Results Medications: Active Medications Generic Name Dose Route Start Last Admin Trade Name Freq PRN Reason Stop Dose Admin Calcium Carbonate 200 mg 11/15/22 16:35 Calcium Carbonate (Tums) 500 Mg (200 Mg Elemental) PO Q6H PRN Indigestion Enoxaparin Sodium 40 mg 11/14/22 09:00 11/18/22 08:02 Enoxaparin 40 Mg/0.4 Ml Syringe SUB-Q 40 mg DAILY OLIVIA Administration Piperacillin/Tazobactam/Dextrose 3.375 gm in 50 mls @ 100 mls/hr 11/13/22 06:00 11/18/22 11:47 Zosyn 3.375 Gm/D5w 50ml Pm IVPB 100 mls/hr Q6H OLIVIA Administration Lorazepam 0.5 mg 11/13/22 10:55 Lorazepam Inj (*Crx) 2 Mg/Ml Vial IV PUSH Q6H PRN Anxiety Ondansetron HCl 4 mg 11/12/22 21:56 11/17/22 00:06 Ondansetron Inj 4 Mg/2 Ml Vial IV PUSH 4 mg Q4H PRN Administration Nausea Oxycodone HCl 2.5 mg 11/15/22 11:54 11/17/22 20:56 Oxycodone Hcl (*Crx) 2.5 Mg Tab Ir PO 2.5 mg
[2022-11-18 14:00] VITALS: BP 116/73; PULSE 98; RESP 18; TEMP 35.8; O2SAT 95
--- NOTE | 2022-11-18 15:30 | PM.IMPN ---
Progress Note: A&P Assessment and Plan (1) Perforated diverticulum of intestine: Code(s): K57.80 - Diverticulitis of intestine, part unspecified, with perforation and abscess without bleeding Status: Acute Assessment and Plan: patient presented with abdominal pain. CT on admission showed complicated sigmoid diverticulitis with microperforation and early abscess formation underwent CT-guided transgluteal abscess drainage on 11/13/22 and tolerated well abscess cultures are negative to date continue IV Zosyn 11/16/22 pt developed worsened pain with advancing diet. Repeat CT a/p showed stable perisigmoid abscess with interval increase in volume of free intraperitoneal gas, ascites, and inflammatory changes of the mesentery surgical intervention may be indicated, however patient is stable at this time and continues to show clinical improvement advanced to full liquids slight increase in leukocytosis today to 15.3. Continue to trend CBC with diff continue with supportive care (2) Hypokalemia: Code(s): E87.6 - Hypokalemia Status: Acute Assessment and Plan: Potassium is 3.1 today. Likely secondary to decreased p.o. intake supplement potassium. Forty mEq p.o. given today (3) Tobacco abuse: Code(s): Z72.0 - Tobacco use Status: Acute Assessment and Plan: Nicotine patch as needed during admission Subjective Date/time seen: 11/18/22 15:30 Interval history: date of service: 11/18/2022 Billie Riddle is a 52-year-old female with a history of depression, anxiety, colitis, diverticulitis who is seen in follow-up for diverticulitis with perforation and abscess. she is feeling a bit better today. Currently rates her pain is 3-4/10. She states that she was able to go longer in between getting pain medication today which she feels is an improvement. She is tolerating clear liquids. She does endorse some mild nausea but no episodes of emesis. Denies fever or chills. She does report feeling very frustrated regarding continued hospitalization and is eager to return home Review of Systems Review of Systems: All systems reviewed & are unremarkable except as noted in HPI and below Exam Narrative: General: well-nourished, well-appearing 52-year-old female, sitting up in bed, comfortable, NARD Neuro: awake, alert and oriented x4, speech clear, no focal neuro deficits noted HEENMT: normocephalic, atraumatic, EOMI, sclerae anicteric, moist oral mucosa Respiratory: clear to auscultation bilaterally, nonlabored breathing Cardio: regular rate, regular rhythm with S1-S2 Abdomen: nondistended, normoactive bowel sounds, soft, slightly tender to palpation of mid abdomen Extremities: no edema, erythema, or tenderness to palpation, DP pulses 2+ bilaterally Skin: no rashes or lesions, warm and dry Psych: appropriate mood and affect, tearful, judgment and insight intact Objective Data Vital Signs Vital Signs: Vital Signs - 24 hr 11/17/22 19:56 11/17/22 21:20 11/18/22 05:25 Temperature 97.5 F L 98.7 F Pulse Rate 116 H 92 Respiratory Rate 18 18 Blood Pressure 119/76 102/60 Pulse Oximetry 95 91 Oxygen Delivery Room Air 11/18/22 08:00 11/18/22 14:00 Temperature 96.5 F L Pulse Rate 98 Respiratory Rate 18 Blood Pressure 116/73 Pulse Oximetry 95 Oxygen Delivery Room Air Intake/Output Intake/Output: Intake & Output 11/15/22 11/16/22 11/17/22 11/18/22 23:59 23:59 23:59 23:59 Intake Total 3246 1102 1177 380 Output Total 1100 320 Balance 2146 782 1177 380 Meds/Results Medications: Active Medications Generic Name Dose Route Start Last Admin Trade Name Freq PRN Reason Stop Dose Admin Calcium Carbonate 200 mg 11/15/22 16:35 Calcium Carbonate (Tums) 500 Mg (200 Mg Elemental) PO Q6H PRN Indigestion Enoxaparin Sodium 40 mg 11/14/22 09:00 11/18/22 08:02 Enoxaparin 40 Mg/0.4 Ml Syringe SUB-Q 40 mg DAILY
[2022-11-18] MEDS: oxyCODONE HCL (*CRX) 2.5 MG TAB IR PO (20:10)
[2022-11-18 21:17] VITALS: BP 111/70; PULSE 93; RESP 14; TEMP 36.1; O2SAT 90
[2022-11-19 05:39] VITALS: BP 106/69; PULSE 86; RESP 14; TEMP 36.4; O2SAT 92
[2022-11-19] MEDS: oxyCODONE HCL (*CRX) 2.5 MG TAB IR PO ×2 (05:47→20:57)
[2022-11-19 06:13] LABS: Basophils Absolute Auto 0.1 K/mm3 (0.0-0.1); Basophils Percent Auto 0.4 % (0.2-1.2); Eosinophils Absolute Auto 0.4 K/mm3 (0-0.3); Eosinophils Percent Auto 2.2 % (0-4.4); Hematocrit 34.1 % (37.0-47.0); Hemoglobin 11.2 g/dL (12.0-15.0); Immature Granulocyte Absolute 0.24 K/mm3 (0.00-0.031); Immature Granulocyte Percent A 1.3 % (0-0.5); Lymphocytes Absolute Auto 2.21 K/mm3 (0.9-3.2); Lymphocytes Percent Auto 12.3 % (18.3-44.2); Mean Corpuscular HGB Conc 32.8 g/dl (32-36); Mean Corpuscular Hemoglobin 28.6 pg (26-34); Mean Platelet Volume 10.1 fl (7.4-10.4); Monocytes Percent Auto 5.7 % (2.6-8.5); Neutrophils Absolute Auto 14.1 K/mm3 (1.3-6.7); Neutrophils Percent Auto 78.1 % (45.5-73.1); Platelet Count Result 403 k/mm3 (150-375); Red Blood Count 3.92 M/mm3 (4.2-5.4); Red Cell Distribution Width 14.7 % (11.5-14.5)
[2022-11-19 06:15] LABS: Anion Gap 3 mmol/L (8-16); Blood Urea Nitrogen 4 mg/dL (7-17); Calcium 8.1 mg/dL (8.4-10.2); Carbon Dioxide 34 mmol/L (22-30); Chloride 98 mmol/L (98-107); Estimated CRCL calculation 89 ml/min; Estimated Glomerular Filt Rate > 60; Glucose 94 mg/dL (65-110); Potassium 3.2 mmol/L (3.4-5.0); Sodium 135 mmol/L (137-145)
[2022-11-19] MEDS: ENOXAPARIN 40 MG/0.4 ML SYRINGE SUB-Q (08:22)
[2022-11-19] MEDS: POTASSIUM CHLORIDE 20 MEQ TABLET 40 MEQ PO (08:25)
[2022-11-19] MEDS: oxyCODONE HCL (*CRX) 5 MG TAB IR PO ×4 (09:05→23:47)
[2022-11-19] MEDS: GENTAMICIN SULFATE INJ 340 MG in DEXTROSE 5% 100 ML 100 MG IVPB (09:07)
--- NOTE | 2022-11-19 11:02 | PM.PNGS ---
Progress Note: A&P Assessment and Plan (1) Diverticulitis of large intestine with perforation and abscess: Qualifiers: Diverticulitis bleeding: without bleeding Qualified Code(s): K57.20 - Diverticulitis of large intestine with perforation and abscess without bleeding Code(s): K57.20 - Diverticulitis of large intestine with perforation and abscess without bleeding Status: Acute Assessment and Plan: WBC up to 18,000 today. Tachycardia resolved and she has show some signs of improvement. Having more bloating today. Still no peritoneal signs on exam. Continue IV Zosyn. Add Gentamicin IV today. Repeat labs tomorrow Will keep on full liquids for now, add supplements Plan I have discussed the patient's case and plan of care with Dr. Gamez. Subjective Subjective Date/Time Seen: 11/19/22 11:02 Patient reports: flatus, no bowel movement (since 11/16/22) and afebrile Interval history: Patient seen this morning. She reports feeling more bloated through the night and this morning. She is fiber machine tender across her lower abdomen, but not having abdominal pain. She is mostly complaining of the discomfort of her bloating. Denies N/V. Still tolerating liquids but is primarily only taking in clear liquids with water, soda, and juice because she does not like the options on the full liquid diet. She does have an appetite. Dietitian is ordering Ensure this morning. She is afebrile and no tachycardia overnight or this morning. WBC up again to 18k. Exam Const: General: no acute distress and awake Orientation/consciousness: patient oriented x3 GI: Inspection: other (appears more distended today) GI Palp: Yes Tenderness to palpation present (GI) (diffusely tender, more focally across the lower abdomen), No Guarding due to palpation present (GI) and No Rebound tenderness present Auscultation: Hypoactive bowel sounds present Objective Data Vital Signs Vital Signs: Vital Signs - 24 hr 11/18/22 14:00 11/18/22 20:00 11/18/22 21:17 Temperature 96.5 F L 96.9 F L Pulse Rate 98 93 Respiratory Rate 18 14 Blood Pressure 116/73 111/70 Pulse Oximetry 95 90 Oxygen Delivery Room Air 11/19/22 05:39 11/19/22 08:00 Temperature 97.6 F Pulse Rate 86 Respiratory Rate 14 Blood Pressure 106/69 Pulse Oximetry 92 Oxygen Delivery Room Air Intake/Output Intake/Output: Intake & Output 11/16/22 11/17/22 11/18/22 11/19/22 23:59 23:59 23:59 23:59 Intake Total 1102 1177 1200 918 Output Total 320 Balance 782 1177 1200 918 Meds/Results Medications: Active Medications Generic Name Dose Route Start Last Admin Trade Name Freq PRN Reason Stop Dose Admin Calcium Carbonate 200 mg 11/15/22 16:35 Calcium Carbonate (Tums) 500 Mg (200 Mg Elemental) PO Q6H PRN Indigestion Enoxaparin Sodium 40 mg 11/14/22 09:00 11/19/22 08:22 Enoxaparin 40 Mg/0.4 Ml Syringe SUB-Q 40 mg DAILY OLIVIA Administration Piperacillin/Tazobactam/Dextrose 3.375 gm in 50 mls @ 100 mls/hr 11/13/22 06:00 11/19/22 06:15 Zosyn 3.375 Gm/D5w 50ml Pm IVPB 11/20/22 08:00 Infused Q6H OLIVIA Infusion Gentamicin Sulfate 340 mg/ 108.5 mls @ 100 mls/hr 11/19/22 09:00 Dextrose IVPB PRN PRN PER PROTOCOL Piperacillin/Tazobactam/Dextrose 3.375 gm in 50 mls @ 100 mls/hr 11/20/22 12:00 Zosyn 3.375 Gm/Ns 50 Ml IVPB Q6HR OLIVIA Lorazepam 0.5 mg 11/13/22 10:55 Lorazepam Inj (*Crx) 2 Mg/Ml Vial IV PUSH Q6H PRN Anxiety Ondansetron HCl 4 mg 11/12/22 21:56 11/17/22 00:06 Ondansetron Inj 4 Mg/2 Ml Vial IV PUSH 4 mg Q4H PRN Administration Nausea Oxycodone HCl 2.5 mg 11/15/22 11:54 11/19/22 05:47 Oxycodone Hcl (*Crx) 2.5 Mg Tab Ir PO 2.5 mg Q4H PRN Administration Pain Rated 4-6 Oxycodone HCl 5 mg 11/15/22 11:54 11/19/22 09:05 Oxycodone Hcl (*Crx) 5 Mg Tab Ir PO 5 mg Q4H PRN Administration Pain Rated 7-10 Promethazine HCl 12.5 mg 03/
[2022-11-19 11:22] VITALS: BMI 35.4
[2022-11-19 14:00] VITALS: BP 102/62; PULSE 98; RESP 15; TEMP 36.6; O2SAT 96
--- NOTE | 2022-11-19 14:51 | PM.IMPN ---
Progress Note: A&P Assessment and Plan (1) Perforated diverticulum of intestine: Code(s): K57.80 - Diverticulitis of intestine, part unspecified, with perforation and abscess without bleeding Status: Acute Assessment and Plan: Patient presented with abdominal pain. CT on admission showed complicated sigmoid diverticulitis with microperforation and early abscess formation underwent CT-guided transgluteal abscess drainage on 11/13/22 and tolerated well abscess cultures are negative to date 11/16/22 pt developed worsened pain with advancing diet. Repeat CT a/p showed stable perisigmoid abscess with interval increase in volume of free intraperitoneal gas, ascites, and inflammatory changes of the mesentery surgical intervention may be indicated, however patient is stable at this time and continues to show clinical improvement continue IV Zosyn Gentamicin added today per General surgery recommendations Continue full liquids Continued increase in leukocytosis today to 18. Continue to trend CBC with diff Supportive care (2) Hypokalemia: Code(s): E87.6 - Hypokalemia Status: Acute Assessment and Plan: Potassium is 3.2 today. Likely secondary to decreased p.o. intake supplement potassium. 40 mEq p.o. KCl given today (3) Tobacco abuse: Code(s): Z72.0 - Tobacco use Status: Acute Assessment and Plan: Nicotine patch as needed during admission Plan discussed case with General surgery team Subjective Date/time seen: 11/19/22 14:51 Interval history: date of service: 11/18/2022 Billie Riddle is a 52-year-old female with a history of depression, anxiety, colitis, diverticulitis who is seen in follow-up for diverticulitis with perforation and abscess. Rates her abdominal pain as 4-5/10 today. Denies nausea or vomiting. Feels more bloated and gassy. She is passing flatus besides her last bowel movement was 3 days ago. She is tolerating full liquid diet. Denies fever or chills. No additional concerns Review of Systems Review of Systems: All systems reviewed & are unremarkable except as noted in HPI and below Exam Narrative: General: well-nourished, well-appearing 52-year-old female, sitting up in bed, comfortable, NARD Neuro: awake, alert and oriented x4, speech clear, no focal neuro deficits noted HEENMT: normocephalic, atraumatic, EOMI, sclerae anicteric, moist oral mucosa Respiratory: clear to auscultation bilaterally, nonlabored breathing Cardio: regular rate, regular rhythm with S1-S2 Abdomen: Mildly distended, normoactive bowel sounds, soft, slightly tender to palpation of mid abdomen Extremities: no edema, erythema, or tenderness to palpation, DP pulses 2+ bilaterally Skin: no rashes or lesions, warm and dry Psych: appropriate mood and affect, tearful, judgment and insight intact Objective Data Vital Signs Vital Signs: Vital Signs - 24 hr 11/18/22 20:00 11/18/22 21:17 11/19/22 05:39 Temperature 96.9 F L 97.6 F Pulse Rate 93 86 Respiratory Rate 14 14 Blood Pressure 111/70 106/69 Pulse Oximetry 90 92 Oxygen Delivery Room Air 11/19/22 08:00 11/19/22 14:00 Temperature 97.8 F Pulse Rate 98 Respiratory Rate 15 Blood Pressure 102/62 Pulse Oximetry 96 Oxygen Delivery Room Air Intake/Output Intake/Output: Intake & Output 11/16/22 11/17/22 11/18/22 11/19/22 23:59 23:59 23:59 23:59 Intake Total 1102 1177 1200 1018 Output Total 320 Balance 782 1177 1200 1018 Meds/Results Medications: Active Medications Generic Name Dose Route Start Last Admin Trade Name Freq PRN Reason Stop Dose Admin Acetaminophen 650 mg 11/19/22 11:09 Acetaminophen 325 Mg Tablet PO Q4H PRN Mild Pain (1-3) or Fever Calcium Carbonate 200 mg 11/15/22 16:35 Calcium Carbonate (Tums) 500 Mg (200 Mg Elemental) PO Q6H PRN Indigestion Enoxaparin Sodium 40 mg 11/14/22 09:00 11/19/22 08:22 Enox
[2022-11-19 20:00] VITALS: O2SAT 100
[2022-11-19 20:55] VITALS: BP 102/71; PULSE 92; RESP 16; TEMP 37.1; O2SAT 100
[2022-11-19] MEDS: ACETAMINOPHEN 325 MG TABLET 650 MG PO (20:58)
[2022-11-19 20:59] LABS: Gentamicin Random 1.4 ug/mL (5.0-12.0)
[2022-11-20] MEDS: oxyCODONE HCL (*CRX) 5 MG TAB IR PO ×5 (05:10→23:56)
[2022-11-20 05:24] VITALS: BP 103/67; PULSE 91; RESP 16; TEMP 36.3; O2SAT 95
[2022-11-20 06:37] LABS: Basophils Absolute Auto 0.1 K/mm3 (0.0-0.1); Basophils Percent Auto 0.4 % (0.2-1.2); Eosinophils Absolute Auto 0.2 K/mm3 (0-0.3); Eosinophils Percent Auto 1.1 % (0-4.4); Hematocrit 33.6 % (37.0-47.0); Hemoglobin 11.1 g/dL (12.0-15.0); Immature Granulocyte Absolute 0.24 K/mm3 (0.00-0.031); Immature Granulocyte Percent A 1.4 % (0-0.5); Lymphocytes Absolute Auto 1.44 K/mm3 (0.9-3.2); Lymphocytes Percent Auto 8.4 % (18.3-44.2); Mean Corpuscular Hemoglobin 29.1 pg (26-34); Mean Corpuscular Volume 88.2 fl (80-100); Mean Platelet Volume 9.4 fl (7.4-10.4); Monocytes Absolute Auto 1.4 K/mm3 (0.1-0.6); Monocytes Percent Auto 8.2 % (2.6-8.5); Neutrophils Absolute Auto 13.7 K/mm3 (1.3-6.7); Neutrophils Percent Auto 80.5 % (45.5-73.1); Platelet Count Result 448 k/mm3 (150-375); Red Blood Count 3.81 M/mm3 (4.2-5.4); Red Cell Distribution Width 14.8 % (11.5-14.5); White Blood Count 17.1 K/mm3 (4.5-10.0)
[2022-11-20 06:55] LABS: Anion Gap 3 mmol/L (8-16); Blood Urea Nitrogen 5 mg/dL (7-17); Calcium 8.3 mg/dL (8.4-10.2); Carbon Dioxide 35 mmol/L (22-30); Chloride 94 mmol/L (98-107); Estimated CRCL calculation 102 ml/min; Estimated Glomerular Filt Rate > 60; Glucose 107 mg/dL (65-110); Potassium 3.4 mmol/L (3.4-5.0); Sodium 132 mmol/L (137-145)
[2022-11-20] MEDS: ENOXAPARIN 40 MG/0.4 ML SYRINGE SUB-Q (08:01)
[2022-11-20] MEDS: GENTAMICIN SULFATE INJ 340 MG in DEXTROSE 5% 100 ML 100 MG IVPB (08:02)
--- NOTE | 2022-11-20 09:55 | PM.PNGS ---
Progress Note: A&P Assessment and Plan (1) Diverticulitis of large intestine with perforation and abscess: Qualifiers: Diverticulitis bleeding: without bleeding Qualified Code(s): K57.20 - Diverticulitis of large intestine with perforation and abscess without bleeding Code(s): K57.20 - Diverticulitis of large intestine with perforation and abscess without bleeding Status: Acute Assessment and Plan: WBC down to 17k today. No tachycardia. Having some cramping abdominal pain today but feels like she needs to have a BM. Seems less tender today. Will give a dose of milk of mag to try and stimulate her bowels Continue IV Zosyn and Gentamicin Advance to low fiber diet Plan I have discussed the patient's case and plan of care with Dr. Gamez. Subjective Subjective Date/Time Seen: 11/20/22 09:55 Patient reports: tolerating liquids well, voiding w/o difficulty, flatus, no bowel movement and afebrile Interval history: Patient reporting some generalized mild cramping abdominal pain this morning. She feels like she needs to have a BM. Last BM was 3/4. Still tolerating liquids, no N/V. Still has some bloating today, no worse or better. No other complaints. Exam Const: General: comfortable and no acute distress Orientation/consciousness: patient oriented x3 GI: Inspection: non-distended GI Palp: Yes Soft to palpation, Yes Tenderness to palpation present (GI) (less tender today, only tender across the lower abdomen), No Guarding due to palpation present (GI) and No Rebound tenderness present Auscultation: normal bowel sounds Objective Data Vital Signs Vital Signs: Vital Signs - 24 hr 11/19/22 14:00 11/19/22 20:55 11/19/22 20:00 Temperature 97.8 F 98.8 F Pulse Rate 98 92 Respiratory Rate 15 16 Blood Pressure 102/62 102/71 Pulse Oximetry 96 100 100 Oxygen Delivery Room Air 11/20/22 05:24 Temperature 97.3 F L Pulse Rate 91 Respiratory Rate 16 Blood Pressure 103/67 Pulse Oximetry 95 Oxygen Delivery Intake/Output Intake/Output: Intake & Output 11/17/22 11/18/22 11/19/22 11/20/22 23:59 23:59 23:59 23:59 Intake Total 1177 1200 2248.5 50 Balance 1177 1200 2248.5 50 Meds/Results Medications: Active Medications Generic Name Dose Route Start Last Admin Trade Name Freq PRN Reason Stop Dose Admin Acetaminophen 650 mg 11/19/22 11:09 11/19/22 20:58 Acetaminophen 325 Mg Tablet PO 650 mg Q4H PRN Administration Mild Pain (1-3) or Fever Calcium Carbonate 200 mg 11/15/22 16:35 Calcium Carbonate (Tums) 500 Mg (200 Mg Elemental) PO Q6H PRN Indigestion Enoxaparin Sodium 40 mg 11/14/22 09:00 11/20/22 08:01 Enoxaparin 40 Mg/0.4 Ml Syringe SUB-Q 40 mg DAILY OLIVIA Administration Gentamicin Sulfate 340 mg/ 108.5 mls @ 100 mls/hr 11/19/22 09:00 Dextrose IVPB PRN PRN PER PROTOCOL Piperacillin/Tazobactam/Dextrose 3.375 gm in 50 mls @ 100 mls/hr 11/20/22 12:00 Zosyn 3.375 Gm/Ns 50 Ml IVPB Q6HR OLIVIA Gentamicin Sulfate 340 mg/ 108.5 mls @ 100 mls/hr 11/20/22 09:00 11/20/22 08:02 Dextrose IVPB 100 mls/hr Q24H OLIVIA Administration Lorazepam 0.5 mg 11/13/22 10:55 Lorazepam Inj (*Crx) 2 Mg/Ml Vial IV PUSH Q6H PRN Anxiety Ondansetron HCl 4 mg 11/12/22 21:56 11/17/22 00:06 Ondansetron Inj 4 Mg/2 Ml Vial IV PUSH 4 mg Q4H PRN Administration Nausea Oxycodone HCl 2.5 mg 11/15/22 11:54 11/19/22 20:57 Oxycodone Hcl (*Crx) 2.5 Mg Tab Ir PO 2.5 mg Q4H PRN Administration Pain Rated 4-6 Oxycodone HCl 5 mg 11/15/22 11:54 11/20/22 09:00 Oxycodone Hcl (*Crx) 5 Mg Tab Ir PO 5 mg Q4H PRN Administration Pain Rated 7-10 Promethazine HCl 12.5 mg 11/13/22 12:33 11/14/22 09:16 Promethazine Hcl 25 Mg/Ml Ampul IV PUSH 12.5 mg Q4H PRN Administration Nausea And Vomiting Radiology Results: ITS Impressions Catheter Placement CT 11/13/22 14:28
[2022-11-20] MEDS: PIPERACILLN/TAZ 3.375GM/NS50ML 3.375 GM/50 ML BAG IVPB ×3 (11:41→23:57)
--- NOTE | 2022-11-20 12:33 | PM.IMPN ---
Progress Note: A&P Assessment and Plan (1) Perforated diverticulum of intestine: Code(s): K57.80 - Diverticulitis of intestine, part unspecified, with perforation and abscess without bleeding Status: Acute Assessment and Plan: Patient presented with abdominal pain. CT on admission showed complicated sigmoid diverticulitis with microperforation and early abscess formation underwent CT-guided transgluteal abscess drainage on 11/13/22 and tolerated well abscess cultures are negative to date 11/16/22 pt developed worsened pain with advancing diet. Repeat CT a/p showed stable perisigmoid abscess with interval increase in volume of free intraperitoneal gas, ascites, and inflammatory changes of the mesentery surgical intervention may be indicated, however patient is stable at this time and continues to show clinical improvement continue IV Zosyn Gentamicin added on 11/19 per General surgery recommendations advance to low-fiber diet for diet her slight improvement in WBC to 17 today. Continue to trend CBC with differential Supportive care (2) Hypokalemia: Code(s): E87.6 - Hypokalemia Status: Acute Assessment and Plan: potassium has been low, likely due to poor p.o. intake. Improving. Potassium today 3.4 will supplement additional 20 mEq while diet is being advanced (3) Tobacco abuse: Code(s): Z72.0 - Tobacco use Status: Acute Assessment and Plan: Nicotine patch as needed during admission Subjective Date/time seen: 11/20/22 12:33 Interval history: date of service: 11/20/2022 Billie Riddle is a 52-year-old female with a history of depression, anxiety, colitis, and diverticulitis who is seen in follow-up for diverticulitis with perforation and abscess. She is feeling comfortable today. Pain is well controlled. No nausea or vomiting. Tolerating full liquids. Endorses some mild bloating and feels as though she needs to have a bowel movement. Passing flatus. Denies fevers or chills. No dizziness or lightheadedness. Ambulating without difficulty Review of Systems Review of Systems: All systems reviewed & are unremarkable except as noted in HPI and below Exam Narrative: General: well-nourished, well-appearing 52-year-old female, sitting up in bed, comfortable, NARD Neuro: awake, alert and oriented x4, speech clear, no focal neuro deficits noted HEENMT: normocephalic, atraumatic, EOMI, sclerae anicteric, moist oral mucosa Respiratory: clear to auscultation bilaterally, nonlabored breathing Cardio: regular rate, regular rhythm with S1-S2 Abdomen: Nondistended, normoactive bowel sounds, soft, nontender to palpation Extremities: no edema, erythema, or tenderness to palpation, DP pulses 2+ bilaterally Skin: no rashes or lesions, warm and dry Psych: appropriate mood and affect, judgment and insight intact Objective Data Vital Signs Vital Signs: Vital Signs - 24 hr 11/19/22 14:00 11/19/22 20:55 11/19/22 20:00 Temperature 97.8 F 98.8 F Pulse Rate 98 92 Respiratory Rate 15 16 Blood Pressure 102/62 102/71 Pulse Oximetry 96 100 100 Oxygen Delivery Room Air 11/20/22 05:24 Temperature 97.3 F L Pulse Rate 91 Respiratory Rate 16 Blood Pressure 103/67 Pulse Oximetry 95 Oxygen Delivery Intake/Output Intake/Output: Intake & Output 11/17/22 11/18/22 11/19/22 11/20/22 23:59 23:59 23:59 23:59 Intake Total 1177 1200 2248.5 287 Balance 1177 1200 2248.5 287 Meds/Results Medications: Active Medications Generic Name Dose Route Start Last Admin Trade Name Edwinq PRN Reason Stop Dose Admin Acetaminophen 650 mg 11/19/22 11:09 11/19/22 20:58 Acetaminophen 325 Mg Tablet PO 650 mg Q4H PRN Administration Mild Pain (1-3) or Fever Calcium Carbonate 200 mg 11/15/22 16:35 Calcium Carbonate (Tums) 500 Mg (200 Mg Elemental) PO Q6H PRN Indigestion Enoxaparin Sodium 40 mg 11/14/22 09:00 11/20/22 08:01
[2022-11-20 14:00] VITALS: BP 100/53; PULSE 91; RESP 16; TEMP 36.1; O2SAT 94
[2022-11-20] MEDS: POTASSIUM CHLORIDE 20 MEQ TABLET PO (14:06)
[2022-11-20] MEDS: MAGNESIUM HYDROXIDE SUSP 30 ML UDC PO (14:10)
[2022-11-20 20:00] VITALS: PULSE 84; RESP 16; O2SAT 94
[2022-11-20 21:51] VITALS: BP 112/75; PULSE 84; RESP 16; TEMP 36.1; O2SAT 94
[2022-11-21] MEDS: PIPERACILLN/TAZ 3.375GM/NS50ML 3.375 GM/50 ML BAG IVPB ×2 (05:23→11:12)
[2022-11-21 05:32] VITALS: BP 97/63; PULSE 71; RESP 16; TEMP 36.4; O2SAT 97
[2022-11-21] MEDS: oxyCODONE HCL (*CRX) 2.5 MG TAB IR PO ×2 (05:47→11:17)
[2022-11-21 06:54] LABS: Basophils Absolute Auto 0.1 K/mm3 (0.0-0.1); Basophils Percent Auto 0.4 % (0.2-1.2); Eosinophils Absolute Auto 0.4 K/mm3 (0-0.3); Eosinophils Percent Auto 2.5 % (0-4.4); Hematocrit 32.3 % (37.0-47.0); Hemoglobin 10.6 g/dL (12.0-15.0); Immature Granulocyte Absolute 0.21 K/mm3 (0.00-0.031); Immature Granulocyte Percent A 1.3 % (0-0.5); Lymphocytes Absolute Auto 2.26 K/mm3 (0.9-3.2); Lymphocytes Percent Auto 13.8 % (18.3-44.2); Mean Corpuscular HGB Conc 32.8 g/dl (32-36); Mean Corpuscular Hemoglobin 28.5 pg (26-34); Mean Corpuscular Volume 86.8 fl (80-100); Mean Platelet Volume 9.6 fl (7.4-10.4); Monocytes Absolute Auto 1.6 K/mm3 (0.1-0.6); Monocytes Percent Auto 9.7 % (2.6-8.5); Neutrophils Absolute Auto 11.8 K/mm3 (1.3-6.7); Neutrophils Percent Auto 72.3 % (45.5-73.1); Platelet Count Result 509 k/mm3 (150-375); Red Blood Count 3.72 M/mm3 (4.2-5.4); Red Cell Distribution Width 14.8 % (11.5-14.5); White Blood Count 16.3 K/mm3 (4.5-10.0)
[2022-11-21 07:03] LABS: Anion Gap 7 mmol/L (8-16); Blood Urea Nitrogen 4 mg/dL (7-17); Calcium 8.3 mg/dL (8.4-10.2); Carbon Dioxide 34 mmol/L (22-30); Chloride 98 mmol/L (98-107); Estimated CRCL calculation 89 ml/min; Estimated Glomerular Filt Rate > 60; Glucose 101 mg/dL (65-110); Potassium 3.2 mmol/L (3.4-5.0); Sodium 139 mmol/L (137-145)
[2022-11-21] MEDS: ENOXAPARIN 40 MG/0.4 ML SYRINGE SUB-Q (08:23)
[2022-11-21] MEDS: GENTAMICIN SULFATE INJ 340 MG in DEXTROSE 5% 100 ML 100 MG IVPB (08:23)
[2022-11-21] MEDS: oxyCODONE HCL (*CRX) 5 MG TAB IR PO (08:24)
--- NOTE | 2022-11-21 10:10 | PM.PNGS ---
Progress Note: A&P Assessment and Plan (1) Diverticulitis of large intestine with perforation and abscess: Qualifiers: Diverticulitis bleeding: without bleeding Qualified Code(s): K57.20 - Diverticulitis of large intestine with perforation and abscess without bleeding Code(s): K57.20 - Diverticulitis of large intestine with perforation and abscess without bleeding Status: Acute Assessment and Plan: Continues to clinically improve. Cramping pain and bloating improved after moving her bowels yesterday. WBC trending down. Consulted dietitian for low fiber information per pt request. Okay to discharge today from a surgical standpoint. Will transition to oral moxifloxacin on discharge. F/u with Dr. Gamez in 2 weeks. Discussed reasons to return or call the office sooner. Plan I have discussed the patient's case and plan of care with Dr. Gamez. Subjective Subjective Date/Time Seen: 11/21/22 10:10 Patient reports: no new complaints, feels better, pain is less, tolerating a regular diet, flatus, bowel movement and afebrile Interval history: Patient doing better today. Reports her cramping abdominal pain improved after having a few bowel movements yesterday. Tolerating low fiber diet. No N/V. Bloating has improved now that she has moved her bowels. No other complaints at this time. Review of Systems Review of Systems: ROS unchanged Exam Const: General: no acute distress and awake Orientation/consciousness: patient oriented x3 GI: Inspection: non-distended GI Palp: Yes Soft to palpation, Yes Tenderness to palpation present (GI) (very minimal TTP in LLQ, much improved), No Guarding due to palpation present (GI) and No Rebound tenderness present Percussion: Yes normal to percussion Auscultation: normal bowel sounds Objective Data Vital Signs Vital Signs: Vital Signs - 24 hr 11/20/22 14:00 11/20/22 21:51 11/20/22 20:00 Temperature 97 F L 97.0 F L Pulse Rate 91 84 84 Respiratory Rate 16 16 16 Blood Pressure 100/53 L 112/75 Pulse Oximetry 94 94 94 Oxygen Delivery Room Air 11/21/22 05:32 Temperature 97.5 F L Pulse Rate 71 Respiratory Rate 16 Blood Pressure 97/63 L Pulse Oximetry 97 Oxygen Delivery Intake/Output Intake/Output: Intake & Output 11/18/22 11/19/22 11/20/22 11/21/22 23:59 23:59 23:59 23:59 Intake Total 1200 2248.5 1375.5 1122 Balance 1200 2248.5 1375.5 1122 Meds/Results Medications: Active Medications Generic Name Dose Route Start Last Admin Trade Name Freq PRN Reason Stop Dose Admin Acetaminophen 650 mg 11/19/22 11:09 11/19/22 20:58 Acetaminophen 325 Mg Tablet PO 650 mg Q4H PRN Administration Mild Pain (1-3) or Fever Calcium Carbonate 200 mg 11/15/22 16:35 Calcium Carbonate (Tums) 500 Mg (200 Mg Elemental) PO Q6H PRN Indigestion Enoxaparin Sodium 40 mg 11/14/22 09:00 11/21/22 08:23 Enoxaparin 40 Mg/0.4 Ml Syringe SUB-Q 40 mg DAILY OLIVIA Administration Gentamicin Sulfate 340 mg/ 108.5 mls @ 100 mls/hr 11/19/22 09:00 Dextrose IVPB PRN PRN PER PROTOCOL Piperacillin/Tazobactam/Dextrose 3.375 gm in 50 mls @ 100 mls/hr 11/20/22 12:00 11/21/22 05:53 Zosyn 3.375 Gm/Ns 50 Ml IVPB Infused Q6HR OLIVIA Infusion Gentamicin Sulfate 340 mg/ 108.5 mls @ 100 mls/hr 11/20/22 09:00 11/21/22 08:23 Dextrose IVPB 100 mls/hr Q24H OLIVIA Administration Lorazepam 0.5 mg 11/13/22 10:55 Lorazepam Inj (*Crx) 2 Mg/Ml Vial IV PUSH Q6H PRN Anxiety Ondansetron HCl 4 mg 11/12/22 21:56 11/17/22 00:06 Ondansetron Inj 4 Mg/2 Ml Vial IV PUSH 4 mg Q4H PRN Administration Nausea Oxycodone HCl 2.5 mg 11/15/22 11:54 11/21/22 05:47 Oxycodone Hcl (*Crx) 2.5 Mg Tab Ir PO 2.5 mg Q4H PRN Administration Pain Rated 4-6 Oxycodone HCl 5 mg 11/15/22 11:54 11/21/22 08:24 Oxycodone Hcl (*Crx) 5 Mg Tab Ir PO 5 mg Q4H PRN Administration Pain Rated 7-10 P
--- NOTE | 2022-11-21 10:51 | PCDIET ---
Physician consult for Diverticulitis education. See Nutritional Intervention. Thank you for the consult.
[2022-11-21] MEDS: POTASSIUM CHLORIDE 20 MEQ TABLET 40 MEQ PO (11:12)
--- NOTE | 2022-11-21 11:22 | PM.DS ---
DS: Admitting Diagnosis Discharge Date 11/21/2022 Admitting Diagnosis perforated diverticulum DS: Discharge Diagnosis Discharge Diagnosis (1) Perforated diverticulum of intestine: Code(s): K57.80 - Diverticulitis of intestine, part unspecified, with perforation and abscess without bleeding Status: Acute Assessment and Plan: Patient presented with abdominal pain. CT on admission showed complicated sigmoid diverticulitis with microperforation and early abscess formation underwent CT-guided transgluteal abscess drainage on 11/13/22 and tolerated well abscess cultures negative blood cultures negative Repeat CT a/p on 11/16/22 showed stable perisigmoid abscess with interval increase in volume of free intraperitoneal gas, ascites, and inflammatory changes of the mesentery Pt had clinical improvement and was slowly able to advance to low fiber diet which she will continue as an outpatient Received IV Zosyn and gentamycin during admission with overall improvement and downward trend in WBC Continue PO moxifloxacin on discharge for a 10 day course WBC with overall improvement though still elevated at time of discharge with thrombocytosis, all felt to be secondary to infectiuous process. Will repeat CBC with diff in 1 week to ensure resolution Outpt follow up with general surgery in 2 weeks (2) Hypokalemia: Code(s): E87.6 - Hypokalemia Status: Acute Assessment and Plan: low-potassium throughout admission, likely due to poor oral intake potassium was supplemented appropriately will continue 20 mEq p.o. KCl daily for an additional 5 days until diet/ appetite becomes more regular repeat potassium as an outpatient in 1 week (3) Tobacco abuse: Code(s): Z72.0 - Tobacco use Status: Acute Assessment and Plan: patient smokes 1 pack per day. smoking cessation education provided for 3 minutes pt aware that nicotine impairs healing process DS: Summary Hospital Course Hospital Course: date of admission: 11/12/2022 date of discharge: 11/21/2022 Billie Riddle is a 52-year-old female with a history of depression, anxiety, colitis, and diverticulitis who presented to the emergency department on 11/12/2022 with complaints of abdominal cramping worsened in the left lower quadrant. On presentation to the ED, she had a low-grade fever of 100.1?, she was mildly tachycardic, additional vital signs were stable, would WBC 14.0, additional laboratory workup unremarkable, lactic acid 1.0, COVID influenza negative, CT of the abdomen/ pelvis showed complicated sigmoid diverticulitis with evidence of microperforation and moderate volume peripherally enhancing adjacent free fluid in the left deep pelvis suggesting early abscess. She was admitted to the hospitalist service for further evaluation and management and was seen in consultation by General surgery. Please see above for further details. She underwent percutaneous abscess drainage and abscess cultures were negative. She was treated with appropriate IV antibiotics and had symptomatic improvement. She was eventually able to tolerate a low-fiber diet which she will continue as an outpatient and follow-up with General surgery in 2 weeks. Potassium was supplemented during admission and patient will continue with supplement and repeat labs as an outpatient in 1 week. She will follow-up with her primary care provider in 1-2 weeks for continued monitoring. Patient was feeling overall improved and was eager for discharge home. Discussed worrisome signs and symptoms for which to return and she was educated on her medications. Patient was educated on smoking cessation. She was discharged in hemodynamically stable condition on 11/21/2022. Time Spent with Patient Time attestation: Total time spent providing and/or coordinating discharge services: 45 minutes Exam Narrative: General: well-nourished, well-appearing 52-year-old female, s
== END 2022-11-21 13:25 | disposition home or self-care (01) | DRG 392 ==
LOC: ANHED 21:06 → ANH3MEDSUR 22:13
PROVIDERS: Emergency Medicine; Nurse Practitioner; Nurse Practitioner Family; Radiology Diagnostic Radiology; Surgery; Admitting Provider Internal Medicine; Emergency Provider General Practice; PCP Family Medicine; Visit Provider Physician Assistant
PROC: 0W9J30Z Drainage of Pelvic Cavity with Drainage Device, Percutaneous Approach (ICD-10-PCS; CPT 75989; principal; 2022-11-13 13:30)
DX: K57.20 Diverticulitis of large intestine with perforation and abscess without bleeding (principal); E87.6 Hypokalemia; D75.839 Thrombocytosis, unspecified; F41.8 Other specified anxiety disorders; F17.210 Nicotine dependence, cigarettes, uncomplicated; Z20.822 Contact with and (suspected) exposure to COVID-19
CPT/HCPCS: 36415; 71045; 74177; 75989; 80048; 80053; 80170; 81001; 81025; 83605; 83690; 83735; 84132; 84484; 85025; 85027; 85610; 85730; 87040; 87070; 87075; 87205; 87636; 93005; 96365; 96375; 99285; A9270; C1729; C1769; J0131; J1170; J1580; J1650; J2250; J2405; J2543; J2550; J2765; J3010; J3480; J7030; J7040; Q9967

== ENCOUNTER → 2022-12-09 08:38 | Outpatient (CLI) | payer OTHER, SELFPAY ==
--- NOTE | ~2022-12-09 | CT_ITS ---
CT of the Abdomen and Pelvis: Indication: Follow-up abscess Technique: 2.5 mm axial scans were obtained through the abdomen and pelvis following intravenous adm inistration of 100 cc of Omnipaque 350. Dose reduction technique was used on this scan by utilizing a utomated exposure control and iterative reconstruction technique. The dose-length product (DLP) was 8 91.44 mGy-cm. COMPARISON: 11/16/2022 Findings: Scans through the lung bases are unremarkable. The liver, spleen, pancreas, gallbladder, adrenals and kidneys are within normal limits. No evidence of aortic aneurysm. No lymphadenopathy. There is wall thickening and pericolonic inflammatory change at the distal sigmoid colon/rectum. Ther e is probable reactive wall thickening of the distal ileum. There is trace free fluid in the pelvis. No definite defined abscess evident. Images through the pelvis were performed. Urinary bladder unremarkable. No definite adnexal mass seen . Impression: Wall thickening and pericolonic inflammatory change at the distal sigmoid colon/rectum is consistent with diverticulitis. Small amount of free fluid, no definite abscess identified. Reviewed, dictated and finalized at [facility]. Impression: Wall thickening and pericolonic inflammatory change at the distal sigmoid colon /rectum is consistent with diverticulitis. Small amount of free fluid, no defin ite abscess identified.
== END ==
PROVIDERS: PCP Family Medicine; Visit Provider Surgery
DX: K57.20 Diverticulitis of large intestine with perforation and abscess without bleeding (principal)
CPT/HCPCS: 74177; Q9967

== ENCOUNTER 2023-01-22 06:12 | Day surgery (SDC) | payer OTHER, SELFPAY ==
[2022-12-16 10:04] VITALS: BMI 32.5
[2023-01-06 13:58] VITALS: BMI 32.0
--- NOTE | 2023-01-21 12:04 | WPDANESEPPF ---
Anes - Initial Pre Proc Eval Procedure: Operation Date: 01/22/23 07:30 Proposed Procedures p Diagnostic Colonoscopy - Erik Gamez DO Date/Time: 01/21/23 12:04 Surgeon: Erik Gamez DO Pre Op Diagnosis: Diverticulitis of LRG Intestine w/perf. & abscess Patient Data Age: 52 Gender: F Height: 1.6 m Weight: 82 kg Allergies Allergy/AdvReac Type Severity Reaction Status Date / Time metronidazole [From Flagyl] AdvReac Mild Nausea Verified 01/22/23 06:25 Home Medications Medication Instructions Recorded Confirmed Type dicyclomine 10 mg capsule 10 mg PO TID PRN abdominal pain 12/03/22 01/22/23 Rx #30 caps oxycodone-acetaminophen 5 mg-325 1 tablet PO Q4H PRN pain #10 tabs 12/03/22 01/06/23 Rx mg tablet (Percocet) hydrocodone 7.5 mg-acetaminophen 1 tablet PO DAILY back pain 01/06/23 01/22/23 History 325 mg tablet Patient hx anesthesia problems: none Family hx anesthesia problems: none Results Review: All pre-operative results and documents have been reviewed as part of the pre-operative evaluation. [facility] Past Medical History Medical History (Updated 01/21/23 @ 12:05 by Brandon Lawler MD) Chronic bilateral low back pain with sciatica Chronic narcotic use Depression with anxiety Diverticulitis Elevated triglycerides with high cholesterol ETD (eustachian tube dysfunction) History of colitis 2018 Menopausal symptoms Obesity Osteoarthritis of spine with radiculopathy Sinusitis Tension type headache, unspecified Tobacco abuse Vaginitis Vitamin deficiency, unspecified Surgical History Surgical History History of bilateral tubal ligation History of colonoscopy Reportedly has had a colonoscopy in the past many years ago and is due, but cannot recall what year and denies any significant findings History of laparoscopy 2014 - Diagnostic laparoscopy, diagnostic hysteroscopy for dysfunctional uterine bleeding History of oophorectomy Family History Family History Grandparent Diabetes mellitus, Onset Age: 60 Cerebrovascular accident Father Mother Dementia Social History Social History Smoking packs per day: 1 Smoking cigarettes per day: 20.0 Years smoked: 35 Smoking pack-years: 35.00 Smoking status: Current every day smoker Tobacco type: cigarettes Second hand tobacco smoke exposure: No Alcohol intake: current Drinks per week: 1 Substance use: current Substance use type: marijuana Last use: today Lack of Transportation: No Lack of Food: Never True Current Housing: I Have Housing Concerned About Future Housing: No Difficulty Paying Gas/Electric Bills: No Difficulty Paying for Meds: No Currently Unemployed: No Education: Associate Degree Difficulty w/ Childcare or Family Care: No Living arrangements: alone Occupation/Education: occupation 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 Gender identity (if verbalized by the patient): Female Spiritual care concerns: No Anes - Eval Final PreProcedure Day of Procedure 01/21/23 12:04 Patient weight: obese Heart: regular rate and rhythm Lungs: clear to auscultation and normal air movement Airway: Mallampati scale class II Neurological: alert and oriented Last oral intake: >/= 8 hours ASA classification: III Emergent: no Anesthetic plan: proceed Anesthesia type and monitoring: general GIVS Results Review: All pre-operative results and documents have been reviewed as part of the pre-operative evaluation. Informed Consent: The patient's anesthetic plan and its attendant risks and benefits were discussed with the patient/family/POA. Questions were solicited and answers provided to the satisfact
[2023-01-22 06:32] VITALS: BMI 32.1
[2023-01-22 06:34] VITALS: BP 115/81; PULSE 90; RESP 18; TEMP 36.4; O2SAT 100
[2023-01-22] MEDS: LACTATED RINGERS 1,000 ML 150 ML IV CONT (06:50)
--- NOTE | 2023-01-22 07:23 | PM.IMHP ---
H&P: HPI History of Present Illness Date/Time: 01/22/23 07:23 Chief Complaint: Diverticulitis Narrative: this is a 52-year-old woman who presents for colonoscopy. She had a recent hospitalization for diverticulitis but has recovered. She reports overall no significant pain since being discharged. She has had a couple days of minor pain that resolved on its own. Review of Systems Review of Systems: All systems reviewed & are unremarkable except as noted in HPI and below Constitutional: Constitutional: Denies chills, Denies fever(s), Denies headache(s) and Denies weight loss Eyes: Eyes: Denies change in vision ENT: Denies dizziness, Denies headache(s), Denies neck mass and Denies throat swelling Cardiovascular: Cardiovascular: Denies chest pain, Denies lightheadedness and Denies dyspnea Respiratory: Respiratory: Denies cough, Denies dyspnea and Denies wheezing Gastrointestinal: Gastrointestinal: Denies abdominal pain, Denies change in bowel habits, Denies nausea and Denies vomiting Genitourinary: Genitourinary: Denies hematuria and Denies dysuria Musculoskeletal: Musculoskeletal: Reports as per HPI Integumentary/Breasts: Skin/Breast: Reports as per HPI Neurologic: Denies dizziness and Denies headache(s) Allergic/Immunologic: Allergic/Immunologic: Denies throat swelling and Denies wheezing PMFSH Past Medical History Medical History (Updated 01/21/23 @ 12:05 by Brandon Lawler MD) Chronic bilateral low back pain with sciatica Chronic narcotic use Depression with anxiety Diverticulitis Elevated triglycerides with high cholesterol ETD (eustachian tube dysfunction) History of colitis 2018 Menopausal symptoms Obesity Osteoarthritis of spine with radiculopathy Sinusitis Tension type headache, unspecified Tobacco abuse Vaginitis Vitamin deficiency, unspecified Surgical History Surgical History History of bilateral tubal ligation History of colonoscopy Reportedly has had a colonoscopy in the past many years ago and is due, but cannot recall what year and denies any significant findings History of laparoscopy 2014 - Diagnostic laparoscopy, diagnostic hysteroscopy for dysfunctional uterine bleeding History of oophorectomy Family History Family History Grandparent Diabetes mellitus, Onset Age: 60 Cerebrovascular accident Father Mother Dementia Social History Social History Smoking packs per day: 1 Smoking cigarettes per day: 20.0 Years smoked: 35 Smoking pack-years: 35.00 Smoking status: Current every day smoker Tobacco type: cigarettes Second hand tobacco smoke exposure: No Alcohol intake: current Drinks per week: 1 Substance use: current Substance use type: marijuana Last use: today Lack of Transportation: No Lack of Food: Never True Current Housing: I Have Housing Concerned About Future Housing: No Difficulty Paying Gas/Electric Bills: No Difficulty Paying for Meds: No Currently Unemployed: No Education: Associate Degree Difficulty w/ Childcare or Family Care: No Living arrangements: alone Occupation/Education: occupation 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 Gender identity (if verbalized by the patient): Female Spiritual care concerns: No Meds Home Medications and Allergies Home Medications Medication Instructions Recorded Confirmed Type dicyclomine 10 mg capsule 10 mg PO TID PRN abdominal pain 12/03/22 01/22/23 Rx #30 caps oxycodone-acetaminophen 5 mg-325 1 tablet PO Q4H PRN pain #10 tabs 12/03/22 01/06/23 Rx mg tablet (Percocet) hydrocodone 7.5 mg-acetaminophen 1 tablet PO DAILY back pain 01/06/23 01/22/23 History 325 mg tablet Al
--- NOTE | 2023-01-22 07:24 | WPDHPUPDATE1 ---
History and Physical Update Update Date/Time: 01/22/23 07:24 History and Physical has been reviewed, including an updated exam of the patient. There are NO changes in the patient's condition. Risks, benefits, and alternatives have been discussed and questions answered. Patient agrees to proceed with procedure.
--- NOTE | 2023-01-22 07:59 | SUR.OPER ---
Pt has large amount of oral secretions, yellow in color. Procedure stopped per anesthesia and Md performing procedure.
[2023-01-22 08:03] VITALS: BP 122/82; PULSE 85; RESP 18; O2SAT 98
[2023-01-22 08:13] VITALS: BP 119/89; PULSE 80; RESP 18; O2SAT 100
[2023-01-22 08:23] VITALS: BP 118/86; PULSE 89; RESP 18; O2SAT 100
--- NOTE | 2023-01-28 08:40 | WPDANESPN ---
Anes - Prog Note Post-Op Date/Time: 01/28/23 08:40 Cardiovascular status: normal Respiratory status: normal Airway patency: baseline Mental status: baseline Post-Op hydration status: normal Vital Signs: Last Vital Signs Temp 36.4 C L 01/22/23 06:34 Pulse 89 01/22/23 08:23 Resp 18 01/22/23 08:23 BP 118/86 01/22/23 08:23 Pulse Ox 100 01/22/23 08:23 O2 Del Method Room Air 01/22/23 08:23 Pain Score (VAS): 0 Post-procedural complaints: none Patient Feedback: Patient satisfied with anesthetic care.
== END 2023-01-22 08:34 | disposition home or self-care (01) ==
PROVIDERS: PCP Family Medicine; Visit Provider Surgery
PROC: 0DJD8ZZ Inspection of Lower Intestinal Tract, Via Natural or Artificial Opening Endoscopic (ICD-10-PCS; CPT 45378; principal; 2023-01-22 07:30)
DX: K57.20 Diverticulitis of large intestine with perforation and abscess without bleeding (principal)
CPT/HCPCS: 45330

== ENCOUNTER 2023-05-22 09:45 | Outpatient (CLI) | payer OTHER, SELFPAY ==
[2023-05-22 11:09] LABS: Hematocrit 42.1 % (37.0-47.0); Hemoglobin 13.9 g/dL (12.0-15.0)
== END 2023-05-22 09:46 | disposition home or self-care (01) ==
LOC: ANHSURGERY 09:48
PROVIDERS: Anesthesiology; PCP Family Medicine; Visit Provider Surgery
DX: K57.20 Diverticulitis of large intestine with perforation and abscess without bleeding (principal); Z01.818 Encounter for other preprocedural examination
CPT/HCPCS: 36415; 85014; 85018; 86850; 86900; 86901

== ENCOUNTER 2023-06-04 14:10 | Inpatient (IN) | payer OTHER, SELFPAY ==
[2023-05-22 10:05] VITALS: BP 149/91; PULSE 66; RESP 16; TEMP 37.2; O2SAT 100; BMI 33.5
--- NOTE | 2023-05-22 10:35 | PC.NURSE ---
Report to the Outpatient Waiting Room, entrance under the green pavilion located off [facility], at time __6:00AM on date __06/04/23 . Planned Procedure Time: __7:30AM . Time changes happen often and if your time is changed the preop area will call you the afternoon before. - You and your visitor will be asked to self-screen and do not enter if you have any COVID symptoms. - A mask is optional within the hospital at this time. Patients may have clear liquids (water, carbonated beverages, clear teas, apple juice) DAY BEFORE SURGERY AND until 3 hours prior to surgery with a maximum of 20 ounces. Take the following medications with a SIP of water the morning of surgery: ___HYDROCODONE NEEDED, HYDROXYZINE NEEDED DO NOT STOP ANY OF YOUR OTHER PRESCRIPTION MEDICATIONS PRIOR TO SURGERY ?EXCEPT THE FOLLOWING Medications to discontinue per physician ____NONE Date to take last dose Please no make-up, nail haitian, hairspray, perfume, deodorant, or body powder the day of surgery. No jewelry (including any body piercings) or valuables the day of surgery, leave them at home. Please take a shower or bath the night before, or the morning of, surgery with an antibacterial soap. Wear comfortable, loose fitting clothing. Children are encouraged to wear pajamas. - Jewelry must be removed prior to entering the operating room. Rings and piercings that are not removed may be cut off. - The hospital will not accept responsibility for valuables. - Please leave all valuables, including medications, at home the day of surgery. If you are going home after surgery, a licensed dray driver must drive you home. - NO public transportation without another adult if you receive anesthesia. - We recommend that an adult stay with you for 24 hours following discharge. - We also recommend that you do not drive, make important decision, drink alcoholic beverages, or take any drugs that were not prescribed by your health care provider for at least 24 hours after your discharge time. Follow any additional instructions given to you from your surgeon. ENSURE BUNDLE BOWEL PREP HIBICLENS SHOWER If you or anyone in your household have experienced Covid symptoms in the past week, please notify your surgeon or the nurse liaison at the phone number below for possible testing. Telephone instructions given to __PATIENT and asked if any additional questions and then verbalized understanding. Patient advised to call surgeon office or pre surgery nurse liaison [phone] if any additional questions.
[2023-06-04] VITALS (16 sets, daily range): BP systolic 96–145; BP diastolic 54–86; PULSE 57–98; RESP 12–18; TEMP 35.7–36.8; O2SAT 94–100
--- NOTE | ~2023-06-04 | XR_ITS ---
EXAMINATION: XR retrograde pyelo w/stent BI DATE: 06/04/2023 08:26 INDICATION: Bilateral retrograde ureteral stent placement for abdominal surgery TECHNIQUE: 5 fluoroscopic images of the abdomen were obtained during procedure performed by Dr. Zachery whatley. Radiologist was not present for the imaging or procedure. The amount of fluoroscopy time used du ring this procedure was 0.7 minutes. COMPARISON: None. FINDINGS: Cannulation and retrograde contrast injection into the bilateral renal collecting systems which appea r normal with no hydronephrosis. Final images demonstrate placement of bilateral in retrograde ureter al stents with distal tips at the level of the bilateral renal pelvises. IMPRESSION: 1. Fluoroscopy utilized during bilateral retrograde ureteral stent placement which are in expected po sition. Reviewed, dictated and finalized at location A. IMPRESSION: 1. Fluoroscopy utilized during bilateral retrograde ureteral stent placement wh ich are in expected position.
[2023-06-04] MEDS: LACTATED RINGERS 1,000 ML 30 ML IV CONT ×2 (06:25→12:29)
[2023-06-04] MEDS: SCOPOLAMINE 1.5 MG PATCH TRANSDERM (06:30)
[2023-06-04] MEDS: ACETAMINOPHEN 500 MG TABLET 1000 MG PO ×3 (06:31→23:47)
[2023-06-04] MEDS: KETOROLAC 15 MG/ML VIAL (*BKC) IV PUSH (06:31)
--- NOTE | 2023-06-04 06:35 | WPDANESEPPF ---
Anes - Initial Pre Proc Eval Procedure: Operation Date: 06/04/23 07:30 Proposed Procedures p Laparoscopic Sigmoidectomy, Davinci Assisted - Erik Gamez DO s Bilateral Stent Placement for Abdominal Surgery - Alessandro Perea MD Date/Time: 06/04/23 06:35 Surgeon: Erik Gamez DO Pre Op Diagnosis: Diverticulitis with Abscess Patient Data Age: 52 Gender: F Height: 1.6 m Weight: 86 kg Last Vital Signs Temp 37.2 C 05/22/23 10:05 Pulse 66 05/22/23 10:05 Resp 16 05/22/23 10:05 BP 149/91 H 05/22/23 10:05 Pulse Ox 100 05/22/23 10:05 O2 Del Method Room Air 05/22/23 10:05 Allergies Allergy/AdvReac Type Severity Reaction Status Date / Time No Known Allergies Allergy Verified 05/22/23 09:57 Home Medications Medication Instructions Recorded Confirmed Type dicyclomine 10 mg capsule 10 mg PO TID PRN abdominal pain 12/03/22 05/22/23 Rx #30 caps hydroxyzine HCl 10 mg tablet 10 mg PO TID PRN anxiety #30 tabs 05/14/23 05/22/23 Rx ciprofloxacin HCl 500 mg tablet See Rx Instructions .Route .COMPLEX 05/22/23 05/22/23 History metronidazole 500 mg tablet See Rx Instructions .Route .COMPLEX 05/22/23 05/22/23 History ondansetron HCl 4 mg tablet 4 mg PO .Q6 PRN nausea and 05/23/23 Rx vomiting #5 tabs hydrocodone 7.5 mg-acetaminophen 1 tablet PO BID PRN pain #60 tabs 05/29/23 Rx 325 mg tablet Patient hx anesthesia problems: post op nausea/vomiting Family hx anesthesia problems: none Results Review: All pre-operative results and documents have been reviewed as part of the pre-operative evaluation. [facility] Past Medical History Medical History BMI 32.0-32.9,adult Chronic narcotic use Depression with anxiety Diverticulitis Elevated triglycerides with high cholesterol ETD (eustachian tube dysfunction) History of colitis 2018 Menopausal symptoms Obesity Osteoarthritis of spine with radiculopathy Sinusitis Tension type headache, unspecified Tobacco abuse Vaginitis Vitamin deficiency, unspecified Surgical History Surgical History History of bilateral tubal ligation History of colonoscopy Reportedly has had a colonoscopy in the past many years ago and is due, but cannot recall what year and denies any significant findings History of laparoscopy 2014 - Diagnostic laparoscopy, diagnostic hysteroscopy for dysfunctional uterine bleeding History of oophorectomy Family History Family History Grandparent Diabetes mellitus, Onset Age: 60 Cerebrovascular accident Father Mother Dementia Social History Social History Smoking packs per day: 1 Smoking cigarettes per day: 20.0 Years smoked: 30 Smoking pack-years: 30.00 Smoking status: Current every day smoker Tobacco type: cigarettes Second hand tobacco smoke exposure: No Alcohol intake: current Drinks per week: 3 Substance use: never Substance use type: marijuana Last use: today Lack of Transportation: No Lack of Food: Never True Current Housing: I Have Housing Concerned About Future Housing: No Difficulty Paying Gas/Electric Bills: No Difficulty Paying for Meds: No Currently Unemployed: No Education: Associate Degree Difficulty w/ Childcare or Family Care: No Living arrangements: with friend(s) Additional living arrangements comments: VERONICA MENDOZA Occupation/Education: occupation 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 Gender identity (if verbalized by the patient): Female Spiritual care concerns: No Anes - Eval Final PreProcedure Day of Procedure 06/04/23 06:35 Patient weight: obese Heart: regular rate and rhythm Lungs: clear to
--- NOTE | 2023-06-04 07:15 | PM.IMHP ---
H&P: HPI History of Present Illness Date/Time: 06/04/23 07:15 Chief Complaint: Diverticulitis large intestine Narrative: This is a 52-year-old woman who presents for sigmoid colectomy for diverticulitis. She was previously hospitalized in November of this year with diverticulitis with perforation and abscess. She had a prolonged course recovering from this and had to have a drain placed. Eventually she recovered without surgery and has now followed up for sigmoid colectomy. She reports no changes since last seen in the office. Review of Systems Review of Systems: All systems reviewed & are unremarkable except as noted in HPI and below Eyes: Eyes: Denies change in vision ENT: Denies hearing loss, Denies neck pain and Denies sore throat Cardiovascular: Cardiovascular: Denies chest pain and Denies dyspnea Respiratory: Respiratory: Denies cough, Denies dyspnea and Denies wheezing Gastrointestinal: Gastrointestinal: Reports as per HPI Genitourinary: Genitourinary: Denies hematuria and Denies dysuria Musculoskeletal: Musculoskeletal: Denies arthralgias, Denies joint swelling and Denies neck pain Allergic/Immunologic: Allergic/Immunologic: Denies wheezing [facility] Past Medical History Medical History BMI 32.0-32.9,adult Chronic narcotic use Depression with anxiety Diverticulitis Elevated triglycerides with high cholesterol ETD (eustachian tube dysfunction) History of colitis 2018 Menopausal symptoms Obesity Osteoarthritis of spine with radiculopathy Sinusitis Tension type headache, unspecified Tobacco abuse Vaginitis Vitamin deficiency, unspecified Surgical History Surgical History History of bilateral tubal ligation History of colonoscopy Reportedly has had a colonoscopy in the past many years ago and is due, but cannot recall what year and denies any significant findings History of laparoscopy 2014 - Diagnostic laparoscopy, diagnostic hysteroscopy for dysfunctional uterine bleeding History of oophorectomy Family History Family History Grandparent Diabetes mellitus, Onset Age: 60 Cerebrovascular accident Father Mother Dementia Social History Social History Smoking packs per day: 1 Smoking cigarettes per day: 20.0 Years smoked: 30 Smoking pack-years: 30.00 Smoking status: Current every day smoker Tobacco type: cigarettes Second hand tobacco smoke exposure: No Alcohol intake: current Drinks per week: 3 Substance use: never Substance use type: marijuana Last use: today Lack of Transportation: No Lack of Food: Never True Current Housing: I Have Housing Concerned About Future Housing: No Difficulty Paying Gas/Electric Bills: No Difficulty Paying for Meds: No Currently Unemployed: No Education: Associate Degree Difficulty w/ Childcare or Family Care: No Living arrangements: with friend(s) Additional living arrangements comments: VERONICA MENDOZA Occupation/Education: occupation 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 Gender identity (if verbalized by the patient): Female Spiritual care concerns: No Meds Home Medications and Allergies Home Medications Medication Instructions Recorded Confirmed Type dicyclomine 10 mg capsule 10 mg PO TID PRN abdominal pain 12/03/22 06/04/23 Rx #30 caps hydroxyzine HCl 10 mg tablet 10 mg PO TID PRN anxiety #30 tabs 05/14/23 06/04/23 Rx ondansetron HCl 4 mg tablet 4 mg PO .Q6 PRN nausea and 05/23/23 06/04/23 Rx vomiting #5 tabs hydrocodone 7.5 mg-acetaminophen 1 tablet PO BID PRN pain #60 tabs 05/29/23 06/04/23 Rx 325 mg tablet Allergies Allergy/AdvReac Type Severity Reaction St
--- NOTE | 2023-06-04 07:18 | WPDHPUPDATE1 ---
History and Physical Update Update Date/Time: 06/04/23 07:18 History and Physical has been reviewed, including an updated exam of the patient. There are NO changes in the patient's condition. Risks, benefits, and alternatives have been discussed and questions answered. Patient agrees to proceed with procedure.
--- NOTE | 2023-06-04 07:43 | WPDHPUPDATE1 ---
History and Physical Update Update Date/Time: 06/04/23 07:43 History and Physical has been reviewed, including an updated exam of the patient. There are NO changes in the patient's condition. Risks, benefits, and alternatives have been discussed and questions answered. Patient agrees to proceed with procedure.
[2023-06-04] MEDS: metroNIDAZOLE 500 MG/ISO 100ML 500 MG/100 ML BAG 100 MG IVPB (07:45)
[2023-06-04] MEDS: ceFAZolin 2 GM/D5W 50 ML 2 GM/50 ML BAG IVPB (07:58)
--- NOTE | 2023-06-04 08:15 | P.OP_ITS ---
Procedure Note - Detailed Date of Procedure 06/04/23 Pre-op Diagnosis Diverticulitis with Abscess Post-op Diagnosis Same Procedure Performed Full cystoscopy bilateral retrogrades bilateral ureteral stent placement external Surgeon Alessandro Perea MD Anesthesia General Description of Procedure Patient is to undergo a robotic assisted sigmoid resection. I am asked to place bilateral external ureteral stents perioperatively. Patient is taken to the operative suite correctly identified. Once anesthesia was obtained she was placed in dorsal lithotomy position and prepped and draped usual sterile fashion. Twenty-two Togolese scope was inserted the bladder. There were no tumors noted. Both ureteral orifices normal anatomic position. Sensor wires were placed up both ureters. Polyps were then passed over the wires up into the renal pelvis under fluoroscopy. Pyelogram was were then performed to confirm placement. Scope was removed. Sixteen Togolese Mason was placed and inflated with 10 cc sterile water. The stents were secured to the Mason catheter. At this point Dr. Arredondo was to complete his resection. Estimated Blood Loss 0 Drains Yes Packing No Pathology None sent Complications No immediate complications Condition Stable Disposition PACU
[2023-06-04] MEDS: BUPIVACAINE/EPINEPHRINE 0.5% 30 ML VIAL INFILTRATE (09:35)
[2023-06-04] MEDS: ceFAZolin SODIUM 1 GM VIAL 2 GM IV PUSH (12:08)
--- NOTE | 2023-06-04 12:31 | W.PM.PROC2 ---
Procedure Note - Detailed Date of Procedure 06/04/23 Pre-op Diagnosis Diverticulitis with Abscess Post-op Diagnosis Same Procedure Performed Laparoscopic sigmoid colectomy with colorectal anastomosis, da Sukhjinder assisted Surgeon Erik Gamez DO Anesthesia General and Local (0.5% bupivacaine with epinephrine) Indications This is a 52-year-old woman who presented with complicated diverticulitis. She had experienced perforated diverticulitis with abscess in November and had undergone percutaneous drainage of the abscess by Interventional Radiology. She had a prolonged recovery after this but eventually we was discharged without requiring emergent surgery. She then followed up for colonoscopy but colonoscopy was technically difficult due to narrowing within the sigmoid colon and a tortuous path. Discussions were made with the patient further about treatment options and decision was made to proceed with robotic assisted laparoscopic sigmoid colectomy. Findings Laparoscopic sigmoid colectomy was performed. The patient was found to have some small bowel adhesions up to the sigmoid colon as well as some adhesions to the left pelvic sidewall. After the adhesions were taken down from the small bowel, there did appear to be a serosal tear on the surface of the distal ileum. This was oversewn using 3-0 Vicryl seromuscular imbricating sutures. A total of 3 sutures were placed to adequately approximate the serosa. The sigmoid colon had some chronic inflammation but the rectum and descending colon appeared healthy and viable. Preoperative ureteral stents were placed by Urology and indocyanine green was injected through the stents to help identify the left ureter. The sigmoid colon was resected and an end-to-side colorectal anastomosis was performed using a 28 mm EEA stapler. Vascular perfusion was verified using indocyanine green and leak test showed no evidence of anastomotic leak. Description of Procedure Procedure as well as risks, benefits, and alternatives were discussed with the patient. Written consent was obtained and placed in chart prior to procedure. Patient was brought back to surgical suite. She was placed supine on operating table. Time-out was done to confirm patient and procedure. She was then intubated by the anesthesia department. She was then repositioned into a modified lithotomy position. Her rectal area was prepped and draped in sterile fashion using Betadine prep and her abdomen was prepped and draped in sterile fashion using chlorhexidine prep. A 8 mm incision was made in the right upper quadrant and a 5 mm Optiview trocar was advanced through the abdominal layers under direct visualization. Once inside the abdominal cavity, carbon dioxide insufflation was used to create a pneumoperitoneum. Camera was inserted and her abdomen was inspected laparoscopically. No immediate abnormalities were identified. The patient was placed in steep Trendelenburg position. A 12 mm incision was made in the right lower quadrant about 2 cm medial to the ASIS, and a 12 mm trocar was inserted under direct visualization. Three more 8 mm incisions were placed and 8 mm ports were placed under direct visualization on an oblique angle going up towards the left upper quadrant. 0.5% bupivacaine with epinephrine was infiltrated locally around each of the port sites. A careful thorough examination of the abdominal cavity was performed. The omentum was reflected cephalad over the stomach. The cecum and small bowel were reflected out of the pelvis. The robotic arms were then brought up to the patient's bedside in secured to the ports. The robotic camera and instruments were then inserted and then I moved over to the robotic console and took control of the camera and instruments. After carefully inspecting the abdominal cavity, I began by taking down some of the adhesions to the sigmoid colon. This involved omentum and small bowel. After taking down the small bowel ad
[2023-06-04] MEDS: fentaNYL CITRATE INJ (*CRX) 100 MCG/2 ML VIAL 25 MCG IV PUSH ×8 (12:36→13:17)
--- NOTE | 2023-06-04 12:51 | SUR.PHASEI ---
1240 - dr. pantoja aware of minimal urine output
[2023-06-04] MEDS: HYDROmorphone HCL INJ (*CRX) 1 MG/ML SYR 0.5 MG IV PUSH ×3 (13:29→15:54)
--- NOTE | 2023-06-04 14:19 | ADMGEN ---
This patient, Billie Riddle, was admitted to Medical Room 347-. Patient/family oriented to hospital policies and general routines including ID bracelet, bed and alarms, visiting hours, pain management, procedures, bathroom and other care routines, personal items, smoking policy, room service/diet, and visiting hours. Information on how to activate the Rapid Response Team has been discussed. Patient/Family are encouraged to report perceived risks to care and to ask questions if they do not understand what they are told or what they should do.
[2023-06-04] MEDS: LACTATED RINGERS 1,000 ML 100 ML IV CONT (15:59)
[2023-06-04] MEDS: oxyCODONE HCL (*CRX) 5 MG TAB IR 10 MG PO (19:34)
[2023-06-04] MEDS: hydrOXYzine HCL 10 MG TABLET PO (21:37)
[2023-06-04] MEDS: HYDROmorphone HCL INJ (*CRX) 1 MG/ML SYR IV PUSH (21:37)
[2023-06-05 03:55] VITALS: BP 113/71; PULSE 56; RESP 14; TEMP 35.7; O2SAT 98
[2023-06-05] MEDS: ACETAMINOPHEN 500 MG TABLET 1000 MG PO ×4 (05:20→22:55)
[2023-06-05 05:55] LABS: Basophils Percent Auto 0.2 % (0.2-1.2); Eosinophils Absolute Auto 0.1 K/mm3 (0-0.3); Eosinophils Percent Auto 0.5 % (0-4.4); Hematocrit 37.9 % (37.0-47.0); Hemoglobin 12.2 g/dL (12.0-15.0); Immature Granulocyte Absolute 0.09 K/mm3 (0.00-0.031); Immature Granulocyte Percent A 0.6 % (0-0.5); Lymphocytes Percent Auto 16.4 % (18.3-44.2); Mean Corpuscular HGB Conc 32.2 g/dl (32-36); Mean Corpuscular Hemoglobin 29.8 pg (26-34); Mean Corpuscular Volume 92.7 fl (80-100); Mean Platelet Volume 10.6 fl (7.4-10.4); Monocytes Percent Auto 6.4 % (2.6-8.5); Neutrophils Absolute Auto 11.6 K/mm3 (1.3-6.7); Neutrophils Percent Auto 75.9 % (45.5-73.1); Platelet Count Result 261 k/mm3 (150-375); Red Blood Count 4.09 M/mm3 (4.2-5.4); Red Cell Distribution Width 15.1 % (11.5-14.5); White Blood Count 15.3 K/mm3 (4.5-10.0)
[2023-06-05 06:25] LABS: Anion Gap 2 mmol/L (8-16); Blood Urea Nitrogen 13 mg/dL (7-17); Calcium 8.6 mg/dL (8.4-10.2); Carbon Dioxide 28 mmol/L (22-30); Chloride 105 mmol/L (98-107); Estimated CRCL calculation 61 ml/min; Estimated Glomerular Filt Rate > 60; Glucose 105 mg/dL (65-110); Potassium 4.1 mmol/L (3.4-5.0); Sodium 135 mmol/L (137-145)
--- NOTE | 2023-06-05 08:53 | P.PNAN_ITS ---
Anes - Prog Note Post-Op Date/Time: 06/05/23 08:53 Cardiovascular status: normal Respiratory status: normal Airway patency: baseline Mental status: baseline Post-Op hydration status: normal Vital Signs: Last Vital Signs Temp 35.7 C L 06/05/23 03:55 Pulse 56 L 06/05/23 03:55 Resp 14 06/05/23 03:55 BP 113/71 06/05/23 03:55 Pulse Ox 98 06/05/23 03:55 O2 Del Method Room Air 06/04/23 14:05 O2 Flow Rate 8 06/04/23 12:40 Pain Score (VAS): 11/22 I/O: Intake & Output 06/04/23 06/05/23 06/05/23 23:59 07:59 15:59 Intake Total 400 500 Output Total 225 400 Balance 175 100 Laboratory Tests 06/05/23 05:34 06/05/23 05:34 06/05/23 05:34 WBC 15.3 H RBC 4.09 L Hgb 12.2 Hct 37.9 MCV 92.7 MCH 29.8 MCHC 32.2 RDW 15.1 H Plt Count 261 MPV 10.6 H Immature Gran % (Auto) 0.6 H Neut % (Auto) 75.9 H Lymph % (Auto) 16.4 L [place] % (Auto) 6.4 Eos % (Auto) 0.5 Baso % (Auto) 0.2 Lymph # (Auto) 2.50 [place] # (Auto) 1.0 H Eos # (Auto) 0.1 Baso # (Auto) 0.0 Abs Immat Gran (auto) 0.09 H Absolute Neuts (auto) 11.6 H Absolute Nucleated RBC 0.0 Nucleated RBC % 0.0 Sodium 135 L Potassium 4.1 Chloride 105 Carbon Dioxide 28 Anion Gap 2 L BUN 13 D Creatinine 1.00 Estim Creat Clear Calc 61 Estimated GFR > 60 Glucose 105 Calcium 8.6 Post-procedural complaints: none Patient Feedback: Patient satisfied with anesthetic care.
--- NOTE | 2023-06-05 10:04 | PM.PNGS ---
Progress Note: A&P Assessment and Plan (1) Diverticulitis of large intestine with perforation and abscess: Qualifiers: Diverticulitis bleeding: without bleeding Qualified Code(s): K57.20 - Diverticulitis of large intestine with perforation and abscess without bleeding Code(s): K57.20 - Diverticulitis of large intestine with perforation and abscess without bleeding Status: Acute Assessment and Plan: Advance to full liquids and stop IV fluid Increase activity Mason out today Subjective Subjective Date/Time Seen: 06/05/23 10:04 Interval history: Tolerating clears, passing flatus. Pain controlled. A little bloating but no nausea. Exam GI: Inspection: non-distended and incision (intact with glue) GI Palp: Yes Soft to palpation and Yes Tenderness to palpation present (GI) (incisional) Auscultation: normal bowel sounds Objective Data Vital Signs Vital Signs: Vital Signs - 24 hr 06/04/23 12:29 06/04/23 12:40 06/04/23 12:55 Temperature 36.3 C L Pulse Rate 85 79 80 Respiratory Rate 12 12 12 Blood Pressure 115/83 116/63 107/67 Pulse Oximetry 100 100 94 Oxygen Delivery Simple Face Mask Simple Face Mask Room Air Oxygen Flow Rate 8 8 06/04/23 13:10 06/04/23 13:25 06/04/23 13:40 Temperature Pulse Rate 64 71 63 Respiratory Rate 12 12 12 Blood Pressure 104/59 L 110/60 124/66 Pulse Oximetry 94 94 97 Oxygen Delivery Room Air Room Air Room Air Oxygen Flow Rate 06/04/23 13:55 06/04/23 14:05 06/04/23 14:50 Temperature 36.8 C Pulse Rate 71 68 67 Respiratory Rate 14 16 16 Blood Pressure 100/82 104/86 96/56 L Pulse Oximetry 94 95 95 Oxygen Delivery Room Air Room Air Oxygen Flow Rate 06/04/23 15:05 06/04/23 15:35 06/04/23 17:00 Temperature 36.8 C 36.8 C 36.6 C Pulse Rate 62 68 84 Respiratory Rate 16 16 18 Blood Pressure 101/54 L 102/61 145/85 H Pulse Oximetry 96 97 96 Oxygen Delivery Oxygen Flow Rate 06/04/23 17:30 06/04/23 19:55 06/04/23 23:55 Temperature 36.4 C 35.7 C L 36.2 C L Pulse Rate 86 57 L 66 Respiratory Rate 16 14 16 Blood Pressure 138/80 122/62 122/69 Pulse Oximetry 98 100 96 Oxygen Delivery Oxygen Flow Rate 06/05/23 03:55 06/05/23 09:03 Temperature 35.7 C L Pulse Rate 56 L Respiratory Rate 14 Blood Pressure 113/71 Pulse Oximetry 98 Oxygen Delivery Room Air Oxygen Flow Rate Intake/Output Intake/Output: Intake & Output 06/02/23 06/03/23 06/04/23 06/05/23 23:59 23:59 23:59 23:59 Intake Total 900 500 Output Total 265 400 Balance 635 100 Meds/Results Medications: Active Medications Generic Name Dose Route Start Last Admin Trade Name Freq PRN Reason Stop Dose Admin Acetaminophen 1,000 mg 06/04/23 18:00 06/05/23 05:20 Acetaminophen 500 Mg Tablet PO 1,000 mg Q6HR OLIVIA Administration Hydromorphone HCl 1 mg 06/04/23 14:10 06/04/23 21:37 Hydromorphone Hcl Inj (*Crx) 1 Mg/Ml Syr IV PUSH 1 mg Q2H PRN Administration Pain Rated 7-10 Hydromorphone HCl 0.5 mg 06/04/23 14:10 06/04/23 15:54 Hydromorphone Hcl Inj (*Crx) 1 Mg/Ml Syr IV PUSH 0.5 mg Q2H PRN Administration Pain Rated 4-6 Hydroxyzine HCl 10 mg 06/04/23 14:10 06/04/23 21:37 Hydroxyzine Hcl 10 Mg Tablet PO 10 mg TID PRN Administration anxiety Ondansetron HCl 4 mg 06/04/23 14:10 Ondansetron Inj 4 Mg/2 Ml Vial IV PUSH Q4H PRN Nausea And Vomiting Oxycodone HCl 5 mg 06/04/23 14:10 Oxycodone Hcl (*Crx) 5 Mg Tab Ir PO Q4H PRN Pain Rated 4-6 Oxycodone HCl 10 mg 06/04/23 14:10 06/04/23 19:34 Oxycodone Hcl (*Crx) 5 Mg Tab Ir PO 10 mg Q4H PRN Administration Pain Rated 7-10 Radiology Results: ITS Impressions Retrograde Pyelogram 06/04/23 13:27 IMPRESSION: 1. Fluoroscopy utilized during bilateral retrograde ureteral stent placement which are in expected position. Labs Labs: Laboratory Results - last 24 hr 06/05/23
[2023-06-05] MEDS: oxyCODONE HCL (*CRX) 5 MG TAB IR PO (10:27)
[2023-06-05] MEDS: oxyCODONE HCL (*CRX) 5 MG TAB IR 10 MG PO ×2 (15:20→20:05)
[2023-06-05] MEDS: hydrOXYzine HCL 10 MG TABLET PO (20:05)
[2023-06-05 20:29] VITALS: BP 120/67; PULSE 72; RESP 16; TEMP 36.2; O2SAT 97
[2023-06-06] MEDS: oxyCODONE HCL (*CRX) 5 MG TAB IR 10 MG PO ×3 (04:31→16:01)
[2023-06-06] MEDS: ACETAMINOPHEN 500 MG TABLET 1000 MG PO ×2 (04:31→12:06)
[2023-06-06 05:26] VITALS: BP 100/68; PULSE 64; RESP 16; TEMP 36.5; O2SAT 97
[2023-06-06 06:14] LABS: Hematocrit 36.2 % (37.0-47.0); Hemoglobin 11.8 g/dL (12.0-15.0); Mean Corpuscular HGB Conc 32.6 g/dl (32-36); Mean Corpuscular Hemoglobin 30.1 pg (26-34); Mean Corpuscular Volume 92.3 fl (80-100); Mean Platelet Volume 10.4 fl (7.4-10.4); Platelet Count Result 249 k/mm3 (150-375); Red Blood Count 3.92 M/mm3 (4.2-5.4); Red Cell Distribution Width 15.4 % (11.5-14.5); White Blood Count 12.6 K/mm3 (4.5-10.0)
[2023-06-06 06:29] LABS: Anion Gap 2 mmol/L (8-16); Blood Urea Nitrogen 9 mg/dL (7-17); Calcium 8.3 mg/dL (8.4-10.2); Carbon Dioxide 32 mmol/L (22-30); Chloride 105 mmol/L (98-107); Estimated CRCL calculation 80 ml/min; Estimated Glomerular Filt Rate > 60; Glucose 112 mg/dL (65-110); Potassium 3.9 mmol/L (3.4-5.0); Sodium 139 mmol/L (137-145)
[2023-06-06 14:21] VITALS: BP 102/60; PULSE 80; RESP 18; TEMP 36.8; O2SAT 98
--- NOTE | 2023-06-06 15:20 | PM.DS ---
DS: Admitting Diagnosis Discharge Date 06/06/2023 Admitting Diagnosis Diverticulitis of large intestine with perforation and abscess DS: Discharge Diagnosis Discharge Diagnosis (1) Diverticulitis of large intestine with perforation and abscess: Qualifiers: Diverticulitis bleeding: without bleeding Qualified Code(s): K57.20 - Diverticulitis of large intestine with perforation and abscess without bleeding Code(s): K57.20 - Diverticulitis of large intestine with perforation and abscess without bleeding Status: Acute (2) Chronic narcotic use: Code(s): F11.90 - Opioid use, unspecified, uncomplicated Status: Acute (3) Tobacco abuse: Code(s): Z72.0 - Tobacco use Status: Acute DS: Summary Hospital Course Reason for hospitalization: Diverticulitis Hospital Course: This is a 52-year-old woman who had a prior history of diverticulitis with perforation and abscess. She was hospitalized in November with an abscess that was drained by Interventional Radiology. She had a prolonged hospitalization at that time but eventually recovered without requiring emergent surgery. She now followed up for sigmoid resection. She underwent robotic assisted laparoscopic sigmoid colectomy with anastomosis on 06/04/2023. She had preoperative stents placed by Dr. Perea. Surgery was uncomplicated and she was placed in the hospital postoperatively. She was started on clear liquid diet which she tolerated well. Her diet was then advanced to a full liquid diet on postop day 1. On postop day 2 she was advanced to a soft low-fiber diet. She remained hemodynamically stable throughout her hospitalization. She was tolerating her diet and passing flatus, but had not had a bowel movement. She denied any bloating or nausea with meals. Her pathology showed evidence of diverticulitis with no evidence of malignancy. She was discharged on 06/06/2023. Time spent discussing smoking cessation with patient: 3 to 10 minutes Status at Discharge Functional status at discharge: independent ambulation Overall status at discharge: patient is progressing back to baseline Time Spent with Patient Time attestation: Total time spent providing and/or coordinating discharge services: Time spent: Less than 30 minutes Exam Resp: Effort & Inspection: normal respiratory effort Auscultation: clear to auscultation bilaterally Cardio: Rate: regular rate Rhythm: regular rhythm Heart sounds: S1 normal heart sound present and S2 normal heart sound present GI: Inspection: non-distended and incision (Intact with glue) GI Palp: Yes Soft to palpation, Yes Tenderness to palpation present (GI) (Incisional) and No Guarding due to palpation present (GI) Percussion: Yes normal to percussion Auscultation: normal bowel sounds DS: Data Data Completed and Pending Completed studies during hospitalization: Pending at discharge 06/04/23 10:59 Surgical [PTH] Routine Labs on day of discharge: Labs from last 24 hours 06/06/23 06:04 WBC 12.6 H RBC 3.92 L Hgb 11.8 L Hct 36.2 L MCV 92.3 MCH 30.1 MCHC 32.6 RDW 15.4 H Plt Count 249 MPV 10.4 Sodium 139 Potassium 3.9 Chloride 105 Carbon Dioxide 32 H Anion Gap 2 L BUN 9 Creatinine 0.80 Estim Creat Clear Calc 80 Estimated GFR > 60 Glucose 112 H Calcium 8.3 L Discharge Plan Discharge Attending physician on discharge: Erik Gamez Consulting providers: Alessandro Perea Discharging Clinician: Erik Gamez Patient Disposition: Home, Self-Care Activity: other - see discharge instructions Diet: low fiber Wound Care Instructions: other - see discharge instructions Discharge Instructions: Postoperative instructions Okay to shower, no bathing or soaking for 2 weeks Continue low-fiber diet for 1 more week, then may resume regular diet without restrictions Okay to return to work in 1 week, may start at part-time from home
== END 2023-06-06 16:12 | disposition home or self-care (01) | DRG 331 ==
LOC: ANH3MED 14:13
PROVIDERS: Urology; Admitting Provider Surgery; PCP Family Medicine; Visit Provider Surgery
PROC: 0DTN4ZZ Resection of Sigmoid Colon, Percutaneous Endoscopic Approach (ICD-10-PCS; principal; 2023-06-04 07:30)
DX: K57.32 Diverticulitis of large intestine without perforation or abscess without bleeding (principal); E78.00 Pure hypercholesterolemia, unspecified; M47.20 Other spondylosis with radiculopathy, site unspecified; F17.210 Nicotine dependence, cigarettes, uncomplicated; F32.A Depression, unspecified; F41.9 Anxiety disorder, unspecified; Z79.891 Long term (current) use of opiate analgesic
CPT/HCPCS: 36415; 74420; 80048; 85025; 85027; 88307; A9270; C1729; C1758; C1769; J0690; J1100; J1170; J1836; J1885; J2250; J2371; J2405; J2704; J2710; J3010; J7030; J7120

== ENCOUNTER → 2023-07-24 14:51 | Outpatient (CLI) | payer OTHER, SELFPAY ==
--- NOTE | ~2023-07-24 | MM_ITS ---
EXAMINATION: MM screening ivon BI w daria HISTORY: Screening TECHNIQUE: Craniocaudal and mediolateral oblique 3-D tomosynthesis images were obtained and synthetic 2-D images were generated. CAD analysis was submitted and interpreted. COMPARISON: Comparison to multiple prior studies sequentially, with oldest reviewed study dated 12/24. BREAST PARENCHYMAL COMPOSITION: There are scattered areas of fibroglandular density. FINDINGS: There is no evidence of suspicious mass, calcification, or architectural distortion to sugg est malignancy in either breast. There has been no suspicious interval change. IMPRESSION: 1. No mammographic evidence of malignancy. 2. Recommend routine screening mammography in one year. BI-RADS Category 1: Negative Reviewed, dictated and finalized at location A. [employer]
== END ==
PROVIDERS: PCP Obstetrics & Gynecology; Visit Provider Family Medicine
DX: Z12.31 Encounter for screening mammogram for malignant neoplasm of breast (principal)
CPT/HCPCS: 77063; 77067

== ENCOUNTER 2024-04-12 12:58 | Outpatient (CLI) | payer OTHER, SELFPAY ==
--- NOTE | ~2024-04-12 | XR_ITS ---
EXAMINATION: XR shoulder RT min 2V DATE: 04/12/2024 13:19 INDICATION: Right shoulder pain. TECHNIQUE: 4 views of right shoulder were obtained. COMPARISON: None. FINDINGS: Bone alignment is normal. No fracture. There is mild osteoarthritis of glenohumeral joint. Acromioclavicular joint is normal. IMPRESSION: 1. Mild right glenohumeral joint osteoarthritis. Reviewed, dictated and finalized at location A.
--- NOTE | ~2024-04-12 | XR_ITS ---
EXAMINATION: XR shoulder LT min 2V DATE: 04/12/2024 13:19 INDICATION: Left shoulder pain. TECHNIQUE: 4 views of left shoulder were obtained. COMPARISON: None. FINDINGS: Alignment is normal. No fracture. There is mild osteoarthritis of acromioclavicular joint a nd moderate osteoarthritis of glenohumeral joint. IMPRESSION: 1. Polyarticular osteoarthritis. Reviewed, dictated and finalized at location A.
== END 2024-04-12 12:59 ==
PROVIDERS: PCP Nurse Practitioner Family; Visit Provider Nurse Practitioner Family
DX: M19.012 Primary osteoarthritis, left shoulder (principal); M19.011 Primary osteoarthritis, right shoulder
CPT/HCPCS: 73030

== ENCOUNTER 2024-09-29 13:18 | Outpatient (CLI) | payer OTHER, SELFPAY ==
--- NOTE | ~2024-09-29 | MM_ITS ---
EXAMINATION: MM screening ivon BI w daria HISTORY: Screening mammogram TECHNIQUE: Craniocaudal and mediolateral oblique 3-D tomosynthesis images were obtained and synthetic 2-D images were generated. CAD analysis was submitted and interpreted. COMPARISON: 07/24/2023, 07/16/2022, 07/12/2021 BREAST PARENCHYMAL COMPOSITION:Not Dense. The breasts are almost entirely fatty FINDINGS: No suspicious mass, calcification, or architectural distortion are identified in either melba ast to suggest malignancy. There has been no suspicious interval change. IMPRESSION: No mammographic evidence of malignancy. Recommend routine screening mammography in one year. BI-RADS Category 1: Negative Reviewed, dictated and finalized at location . [employer] DEVELOPMENT MANAGER
== END 2024-09-29 13:19 | disposition home or self-care (01) ==
LOC: MICIMG 13:18
PROVIDERS: PCP Family Medicine; Visit Provider Obstetrics & Gynecology
DX: Z12.31 Encounter for screening mammogram for malignant neoplasm of breast (principal)
CPT/HCPCS: 77063; 77067